=== PATIENT | female | born 1955 | race Caucasian/White ===

== ENCOUNTER 2018-07-03 20:31 | Inpatient (IN) ==
--- NOTE | 2018-07-03 23:08 | Internal Med History&Physical ---
Date of Encounter: 07/03/18 Time of Encounter: 23:08 Internal Medicine - H&P: HPI Chief complaint: difficulty breathing Admitted From: Home Plans for Post Hospital Care: Home History of present illness: Quiana Gutierrez is a 63-year-old morbidly obese woman who is an active smoker with a history of hypertension, diabetes, obstructive sleep apnea, COPD and heart failure who is brought here on transfer from [place] where she went to with complaints of increasing shortness of breath. She states that over the past 2-3 week she has had cough that is productive of discolored sputum as well as a sensation of chest congestion, sore throat, rhinorrhea and shortness of breath. She has had no fever but does report having chills sometimes. She states that her respiratory symptoms have been progressively worsened and decided to seek medical attention today because this morning after waking up she fell out of bed and hit her head. She did not pass out. She also complains of increasing leg swelling. ER she was given aerosol treatments and a dose of diuretic, started on levofloxacin and subsequently transferred here for further care. On my assessment she is in notable discomfort and ill-appearing. Lab work revealed a WBC of 12, elevated serum bicarbonate and a troponin of 0.12. EKG reviewed by me showed sinus rhythm with nonspecific T-wave abnormalities. Past Med Surg Social Fam HX - Past Medical History Medical history: diabetes, fibromyalgia, GERD, hyperlipidemia, hypertension, other Additional medical history: Deteriorated discs Psychiatric history: depression - Past Surgical History Surgical History: no surgical history - Social History Smoking Status: Current every day smoker Smokeless Tobacco Status: No Alcohol use: none Drug use: none Internal Medicine - H&P: Meds metFORMIN [Glucophage] 1,000 mg PO BIDWM 09/23/15 [History] Esomeprazole Magnesium [Nexium] 40 mg PO BID 01/30/17 [History] HydrOXYzine Pamoate [Vistaril] 25 mg PO QID PRN 01/30/17 [History] Losartan [Cozaar] 100 mg PO DAILY 01/30/17 [History] Naproxen [EC-Naprosyn] 500 mg PO TID 01/30/17 [History] Tramadol HCl [Ultram] 50 mg PO Q4H PRN 01/30/17 [History] Albuterol Sulfate [Albuterol Inhaler] 0 puff IH Q4HR 07/03/18 [History] Cyclobenzaprine HCl [Amrix] 15 mg PO DAILY 07/03/18 [History] DiphenhydraMINE [Benadryl] 25 mg PO Q4HR 07/03/18 [History] Furosemide [Lasix] 40 mg PO DAILY 07/03/18 [History] Gabapentin [Neurontin] 800 mg PO TID 07/03/18 [History] Allergy/AdvReac Type Severity Reaction Status Date / Time Methadone Allergy See Verified 07/03/18 17:01 Comments metoprolol Allergy Itching Verified 07/03/18 17:01 All Systems PM: A 10-system review of systems was performed and is negative for pertinent findings except as documented above in the HPI. Family history reviewed and found noncontributory. - Constitutional Vitals: Temp Pulse Resp BP Pulse Ox 98.1 F 89 16 186/99 88 07/03/18 22:37 07/03/18 22:37 07/03/18 22:37 07/03/18 22:37 07/03/18 22:37 Exam: Vitals: Reviewed General: Morbidly obese woman sitting up in bed and unable to tolerate supine decubitus. Skin: Warm, dry. HEENT: Dry mucous membranes. No conjunctivae pallor. Neck: Short and thick.. Chest: Diminished thoracic expansion. Reduced breath sounds with bibasilar rales. Heart: Normal S1 & S2; rhythmic. No rubs or murmurs. Abdomen: Soft and nontender. Extremities: 1+ lower extremity edema with trophic skin changes of venous stasis. Neurological: Awake, alert and oriented to person, place and time. No focal deficits. Psych: Affect appropriate. - Assessment and plan (1) Acute respiratory failure with hypoxia and hypercapnia Current Visit: Yes Status: Acute Assessment and plan: Likely multifactorial in etiology secondary to COPD exacerbation, pneumonia and acute congestive heart failure. She remains an ongoing 2 pack a day smoker even though she is on supplemental oxygen. She reports upper respiratory symptoms that have progressed over 2 weeks and now has an infiltrate on xray; she also has increasing edema and rales likely from a decompensated heart failure. The minimal BNP elevation is likely due to her obese state. ABG done here shows hypoxia and hypercarbia. Will place her on Bipap overnight. She reports non- adherence to her CPAP for months. Will give a dose of 40mg IVP furosemide as well and place on standing nebulizer therapy. Close respiratory watch. Screen for influenza. Send sputum for culture and check urine for Legionella. Continue levofloxacin 500mg daily. Will order Limon for I/O given her poor mobility while on diuretic therapy. Will like to get a chest CT however she is unable to lay supine at this time to tolerate it. Smoking cessation advised. Ensure patient has received pneumonia vaccines prior to discharge. (2) Elevated troponin Current Visit: Yes Status: Acute Assessment and plan: Suspect secondary to myocardial strain and demand rather than ACS. Will continue to trend levels and monitor patient on telemetry. (3) DM type 2 (diabetes mellitus, type 2) Current Visit: Yes Status: Chronic Assessment and plan: Will place on insulin sliding scale and check A1C to assess state of control. 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 With start antihypertensive agents tonight. Qualifiers: Hypertension type: essential hypertension Qualified Code(s): I10 - Essential (primary) hypertension (5) Fall Current Visit: Yes Status: Acute Assessment and plan: She reports a fall from bed this morning and hitting behind her ear. No traumatic injuries noted. No LOC. No focal deficits or signs of TBI. The patient states she cannot lay supine to tolerate a head CT. Will monitor closely. Fall precautions ordered. Qualifiers: Encounter type: initial encounter Qualified Code(s): W19.XXXA - Unspecified fall, initial encounter (6) DVT prophylaxis Current Visit: Yes Status: Acute Assessment and plan: SubQ heparin ordered. - Time Spent With Patient Total time spent is greater than 50% in coordination of care (as documented) at patient's floor/unit and/or counseling patient: Greater than 35 minutes
[2018-07-03] MEDS ORDERED: Furosemide 40 MG/4 ML VIAL IVP ONE (23:14)
[2018-07-03 23:32] LABS: ABG Base Excess 12 mEq/L (-2 to 3); ABG HCO3 42 mEq/L (21-27); ABG Oxygen Saturation 89 % (95-98); ABG PCO2 79 mmHg (35-45); ABG PH 7.34 pH Units (7.32-7.45); ABG PO2 65 mmHg (85-104); ABG TCO2 45 mEq/L (20-26)
[2018-07-03] MEDS: Ipratropium/Albuterol Neb 3 ML IH SCH (23:35)
[2018-07-03] MEDS ORDERED: Dextrose Gel 15 GM/37.5 ML TUBE PO PRN ×2 (23:40)
[2018-07-03] MEDS ORDERED: amLODIPine 5 MG TABLET PO ONE (23:41)
[2018-07-04] MEDS ORDERED: *HR* Heparin 5,000 UNIT/ML VIAL SQ SCH
[2018-07-04] MEDS: Insulin LISPRO 300 UNITS/3 ML VIAL SQ SCH ×5 (01:13→20:22)
[2018-07-04] MEDS: GuaiFENesin Liq 200 MG/10 ML UDC PO SCH ×4 (01:15→18:32)
[2018-07-04] MEDS: Clotrimazole 1% CRM 15 GM TUBE TP SCH ×3 (01:16→20:22)
[2018-07-04] MEDS ORDERED: ALPRAZolam 0.5 MG TABLET PO ONE (02:00)
[2018-07-04] MEDS ORDERED: *HR* Labetalol 20 MG/4 ML SYRINGE IVP ONE (02:00)
--- NOTE | 2018-07-04 02:56 | Event Note ---
Date of Encounter: 07/04/18 Time of Encounter: 02:55 The patient is continually refusing to be placed on Bipap and is now reporting a plethora of allergies to different antihypertensives now that her BP is significantly elevated. Home medication 100mg losartan ordered. Remains on respiratory watch.
[2018-07-04] MEDS: Ipratropium/Albuterol Neb 3 ML IH SCH ×6 (03:58→23:24)
[2018-07-04] MEDS: traMADol 50 MG TABLET PO PRN ×2 (05:52→20:32)
[2018-07-04] MEDS ORDERED: cloNIDine HCl 0.1 MG TABLET PO ONE (06:12)
[2018-07-04 07:57] LABS: Basophils # 0.1 K/mcL (0.0-0.2); Basophils % 0.5 %; Hematocrit 44.9 % (35.3-44.9); Hemoglobin 13.7 g/dL (11.5-15.4); Immature Granulocytes % 1.1 % (0-4); Lymphocytes # 0.7 K/mcL (0.6-4.6); Lymphocytes % 6.7 %; Mean Corpuscular HGB Conc 30.5 g/dL (31.6-35.5); Mean Corpuscular Volume 88.4 fL (83.0-100.0); Mean Platelet Volume 9.9 fL (9.4-12.4); Monocytes # 0.3 K/mcL (0.0-1.3); Monocytes % 2.9 %; Neutrophils # 9.4 K/mcL (1.6-8.9); Nucleated Red Blood Cells 0.4 /100 WBC (0); Platelet Count 196 K/mcL (140-400); Red Blood Count 5.08 M/mcL (3.82-4.97); Red Cell Distribution Width 14.6 % (11.5-14.5); Segmented Neutrophils % 88.8 %
[2018-07-04] MEDS ORDERED: *HR* Heparin 5,000 UNIT/ML VIAL IVP PRN ×2 (07:59)
[2018-07-04] MEDS ORDERED: *HR* Heparin 5,000 UNIT/ML VIAL IVP ONE (07:59)
[2018-07-04] MEDS ORDERED: Furosemide 20 MG/2 ML VIAL IVP SCH (08:00)
[2018-07-04] MEDS ORDERED: Heparin 25,000 UNIT/500 ML D5W 25,000 UNIT/500 ML BAG IVC SCH (08:00)
[2018-07-04 08:17] LABS: BUN/Creatinine Ratio 13 (6-26); Blood Urea Nitrogen 13 mg/dL (8-23); Calcium 9.2 mg/dL (8.6-10.3); Chloride 91 mEq/L (98-107); Chol/HDL Ratio 5.2 (0-4.9); Cholesterol 157 mg/dL (< 200); Glucose 159 mg/dL (70-105); HDL Cholesterol 30 mg/dL (40-59); LDL Cholesterol,Calculated 108 mg/dL (0-99); Osmolality,Calculated 289 (280-300); Sodium 138 mEq/L (136-145); Triglycerides 96 mg/dL (< 150); Troponin I 0.13 ng/mL (< 0.04); eGFR For Non-African Americans 57 (> 60)
[2018-07-04 08:20] LABS: Carbon Dioxide 42 mEq/L (23-29)
[2018-07-04] MEDS ORDERED: Losartan/HCTZ 50-12.5 TABLET PO SCH (09:00)
[2018-07-04 09:15] LABS: Hematocrit 45.7 % (35.3-44.9); Hemoglobin 13.7 g/dL (11.5-15.4); Mean Corpuscular Hemoglobin 26.9 pg (28.0-33.3); Mean Corpuscular Volume 89.6 fL (83.0-100.0); Mean Platelet Volume 10.2 fL (9.4-12.4); Platelet Count 208 K/mcL (140-400); Red Cell Distribution Width 14.5 % (11.5-14.5)
[2018-07-04 09:25] LABS: INR 1.3; Prothrombin Time 14.3 Seconds (9.4-12.1)
[2018-07-04 10:44] LABS: Estimated Average Glucose 128 mg/dl; Hemoglobin A1C 6.1 %
[2018-07-04] MEDS ORDERED: Perflutren Lipid Microsphere 1.3 ML in 0.9 % Sodium Chloride 8.7 ML IVP ONE (12:03)
[2018-07-04] MEDS: acetaZOLAMIDE 250 MG TABLET PO SCH (12:05)
--- NOTE | 2018-07-04 13:16 | Internal Med Progress Note ---
Hospitalist Progress Note - Encounter Date of Encounter: 07/04/18 Time of Encounter: 08:12 - Subjective Interval History: Patient was seen and examined at bedside. Reports minimal improvement in her shortness of breath since admission. Refusing to wear BiPAP, I discussed the risks and benefits and the low threshold for intubation and she understands she will try to wear the BiPAP again. She denies chest pain, shortness of breath. Reports that she has had minimal physical activity for the past few weeks secondary to shortness of breath. She reports that she smokes cigarettes almost every day. She does report cough with minimal sputum production. Currently denies fever, chills, nausea, vomiting, diarrhea, chest pain. i discussed with the patietn that she is requiring heparin drip for elevated troponin and she requires CTPA to rule out PE she understands nad is willing to try to lay flat later today. she also reports that she only hit her head mildly s/p fall 07/03- she denies vision changes, head ache, loss of function to her extremities, numbness or weakness. she understands the risks and benefits of anticoagulation and she agrees to continue - Exam Vitals: Temp Pulse Resp BP Pulse Ox 97.9 F 79 18 165/73 89 07/04/18 11:25 07/04/18 11:25 07/04/18 11:25 07/04/18 11:25 07/04/18 11:25 Exam: Vitals: Reviewed General: Morbidly obese woman sitting up in bed, speaks in full sentences, nasal cannula Skin: Warm, dry. Chronic skin changes in the bilateral lower extremities secondary to venous stasis HEENT: Dry mucous membranes. No conjunctivae pallor. Neck: Short and thick. Chest: Diminished thoracic expansion. Reduced breath sounds secondary to body habitus with bibasilar rales. Heart: Distant heart sounds secondary to body habitus, Normal S1 & S2; rhythmic. No rubs or murmurs. Abdomen: Soft and nontender. Obese. Extremities: 1+ lower extremity edema with trophic skin changes of venous stasis. Neurological: Awake, alert and oriented to person, place and time. No focal deficits. Psych: Affect appropriate. - Assessment and Plan (1) Acute chronic obstructive pulmonary disease with respiratory failure Current Visit: Yes Status: Acute Assessment and Plan: We will start her on burst of steroids prednisone 40 mg for 5 days Started on Levaquin emergency department will continue Urine antigens negative Influenza negative Oxygen via nasal cannula to keep saturations above 90% BiPAP when necessary for respiratory distress Duo nebs every 4 hours (2) Congestive heart failure Current Visit: No Status: Acute Assessment and Plan: Acute CHF Will get echo Started on Lasix 40 mg IV twice a day Fluid restriction Daily weights (3) Acute respiratory failure with hypoxia and hypercapnia Current Visit: Yes Status: Acute Assessment and Plan: Likely multifactorial in etiology secondary to COPD exacerbation, pneumonia and acute congestive heart failure. And non-adherence to medical therapy. She remains an ongoing 2 pack a day smoker even though she is on supplemental oxygen. For subcutaneous management as above. (4) Elevated troponin Current Visit: Yes Status: Acute Assessment and Plan: Most likely secondary to supply versus demand mismatch cannot rule out underlying CAD rule out PE (well criteria 7.5)n Troponin 0.12 trended 2.13 Started on aspirin 81 mg lipitor 40 mg QHS unable to start BB as she is allergic On heparin drip Unable to lay flat to have CT angiogram of the chest performed Echocardiogram pending (5) Hypertension Current Visit: Yes Status: Chronic Assessment and Plan: Poorly controlled and could exacerbate her cardiac condition. Started on Lasix IV twice a day Losartan 100 mg daily ImDUR 30 mg daily acetazolamide 125 mg daily (6) DM type 2 (diabetes mellitus, type 2) Current Visit: Yes Status: Chronic Assessment and Plan: Will place on insulin sliding scale A1c of 6.1 She was counseled on diet and exercise (7) Fall Current Visit: Yes Status: Acute Assessment and Plan: She reports a fall from bed this morning and hitting behind her ear. No traumatic injuries noted. No LOC. No focal deficits or signs of TBI. The patient states she cannot lay supine to tolerate a head CT. neuro checks Q4h Fall precautions ordered. PT/OT CM SW (8) DVT prophylaxis Current Visit: Yes Status: Acute Assessment and Plan: On heparin drip - Time Spent with Patient Total time spent is greater than 50% in coordination of care (as documented) at patient's floor/unit and/or counseling patient: Internal Medicine: Result - Labs CBC & Chem 7: 07/04/18 08:27 07/04/18 07:13 Labs: Short CBC 07/04/18 07/04/18 Range/Units 07:13 08:27 WBC 10.6 10.7 (4.3-11.1) K/mcL Hgb 13.7 13.7 (11.5-15.4) g/dL Hct 44.9 45.7 H (35.3-44.9) % Plt Count 196 208 (140-400) K/mcL Neutrophils # 9.4 H (1.6-8.9) K/mcL BMP 07/04/18 07:13 Sodium 138 Potassium 4.0 Chloride 91 L Carbon Dioxide 42 H* BUN 13 Creatinine 0.98 Glucose 159 H Calcium 9.2 Cardiac Enzymes 07/04/18 07/04/18 Range/Units 00:30 07:13 Troponin I 0.12 H* 0.13 H* (< 0.04) ng/mL - ABG Interpretation ABG results: ABG ABG pH 7.34 pH Units (7.32-7.45) 07/03/18 23:29 ABG pCO2 79 mmHg (35-45) H* 07/03/18 23:29 ABG pO2 65 mmHg (85-104) L 07/03/18 23:29 ABG O2 Saturation 89 % (95-98) L 07/03/18 23:29 PT/INR, D-dimer PT 14.3 Seconds (9.4-12.1) H 07/04/18 08:27 Consult Discharge Plan - Plan Referrals: NONE,PCP [Primary Care Provider] - _ (2) Congestive heart failure Qualifiers: Heart failure type: unspecified Heart failure chronicity: acute Qualified Code(s): I50.9 - Heart failure, unspecified (5) Hypertension Qualifiers: Hypertension type: essential hypertension Qualified Code(s): I10 - Essential (primary) hypertension (6) DM type 2 (diabetes mellitus, type 2) Qualifiers: 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
[2018-07-04] MEDS ORDERED: Isovue-370 500 ML INFUS..BTL IV ONE (13:55)
[2018-07-04] MEDS: predniSONE 20 MG TABLET PO SCH (16:51)
[2018-07-04] MEDS: Furosemide 40 MG/4 ML VIAL IVP SCH (16:51)
[2018-07-04] MEDS: Aspirin 81 MG TAB.CHEW PO SCH (16:51)
[2018-07-04 20:46] LABS: ABG Base Excess 17 mEq/L (-2 to 3); ABG HCO3 47 mEq/L (21-27); ABG Oxygen Saturation 88 % (95-98); ABG PCO2 76 mmHg (35-45); ABG PO2 58 mmHg (85-104); ABG TCO2 49 mEq/L (20-26)
[2018-07-04] MEDS: Levofloxacin 500 MG/100 ML 500 MG/100 ML BAG IVPB SCH (21:52)
[2018-07-04] MEDS: *HR* Heparin 5,000 UNIT/ML VIAL SQ SCH (21:53)
[2018-07-04] MEDS ORDERED: diazePAM 10 MG/2 ML SYRINGE IVP ONE (23:23)
[2018-07-05] MEDS: GuaiFENesin Liq 200 MG/10 ML UDC PO SCH ×4 (00:28→16:52)
[2018-07-05] MEDS: Ipratropium/Albuterol Neb 3 ML IH SCH ×6 (03:32→23:49)
[2018-07-05 03:52] LABS: Basophils # 0.1 K/mcL (0.0-0.2); Basophils % 0.4 %; Eosinophils % 0.1 %; Hematocrit 44.5 % (35.3-44.9); Hemoglobin 13.6 g/dL (11.5-15.4); Immature Granulocytes % 1.6 % (0-4); Lymphocytes # 1.2 K/mcL (0.6-4.6); Lymphocytes % 8.9 %; Mean Corpuscular HGB Conc 30.6 g/dL (31.6-35.5); Mean Corpuscular Hemoglobin 26.9 pg (28.0-33.3); Mean Corpuscular Volume 88.1 fL (83.0-100.0); Mean Platelet Volume 9.6 fL (9.4-12.4); Monocytes # 0.8 K/mcL (0.0-1.3); Monocytes % 6.1 %; Neutrophils # 10.7 K/mcL (1.6-8.9); Platelet Count 231 K/mcL (140-400); Red Blood Count 5.05 M/mcL (3.82-4.97); Red Cell Distribution Width 14.6 % (11.5-14.5); Segmented Neutrophils % 82.9 %
[2018-07-05 04:44] LABS: Blood Urea Nitrogen 20 mg/dL (8-23); Calcium 9.5 mg/dL (8.6-10.3); Carbon Dioxide 42 mEq/L (23-29); Chloride 89 mEq/L (98-107); Glucose 124 mg/dL (70-105); Osmolality,Calculated 288 (280-300); Potassium 3.9 mEq/L (3.5-5.1); Sodium 137 mEq/L (136-145)
[2018-07-05 05:05] LABS: BUN/Creatinine Ratio 18 (6-26); eGFR For Non-African Americans 50 (> 60)
[2018-07-05] MEDS: *HR* Heparin 5,000 UNIT/ML VIAL SQ SCH ×3 (06:11→23:31)
[2018-07-05] MEDS: Aspirin 81 MG TAB.CHEW PO SCH (07:49)
[2018-07-05] MEDS: predniSONE 20 MG TABLET PO SCH (07:51)
[2018-07-05] MEDS: acetaZOLAMIDE 250 MG TABLET PO SCH (07:51)
[2018-07-05] MEDS: Isosorbide MONOnitrate (24 HR) 60 MG TAB.ER.24H PO SCH (07:51)
[2018-07-05] MEDS: Furosemide 40 MG/4 ML VIAL IVP SCH (07:52)
[2018-07-05] MEDS: Insulin LISPRO 300 UNITS/3 ML VIAL SQ SCH ×4 (07:52→23:29)
[2018-07-05] MEDS: Clotrimazole 1% CRM 15 GM TUBE TP SCH ×2 (07:55→23:31)
[2018-07-05] MEDS: traMADol 50 MG TABLET PO PRN (09:29)
[2018-07-05 10:00] LABS: Adenovirus Not Detected (Not Detect); Bordetella Pertussis Not Detected (Not Detect); Chlamydophila pneumoniae Not Detected (Not Detect); Coronavirus 229E Not Detected (Not Detect); Coronavirus HKU1 Not Detected (Not Detect); Coronavirus NL63 Not Detected (Not Detect); Coronavirus OC43 Not Detected (Not Detect); Human Metapneumovirus Not Detected (Not Detect); Human Rhinovirus/Enterovirus Not Detected (Not Detect); Influenza A Subtype 2009 H1 Not Detected (Not Detect); Influenza A Untypeable Not Detected (Not Detect); Influenza B Not Detected (Not Detect); Mycoplasma pneumoniae Not Detected (Not Detect); Parainfluenza Virus 1 Not Detected (Not Detect); Parainfluenza Virus 2 Not Detected (Not Detect); Parainfluenza Virus 3 Not Detected (Not Detect); Parainfluenza Virus 4 Not Detected (Not Detect); Respiratory Syncytial Virus Not Detected (Not Detect)
--- NOTE | 2018-07-05 10:25 | Cardiology Consult Note ---
<Rosalina Benito - Last Filed: 07/05/18 11:06> Date of Encounter: 07/05/18 Time of Encounter: 09:00 Assessment and Plan (1) Multifocal pneumonia Current Visit: Yes Status: Acute Per cardiology: -Chest CTA with multifocal pneumonia noted. -WBC elevated. -Presented for worsening shortness of breath. -Management per primary service. (2) Congestive heart failure Current Visit: No Status: Chronic Per cardiology: -Reports history of CHF. -TTE with LVEF preserved. -Per reports, was volume overloaded on exam, however euvolemic on exam today. -On IV lasix 40mg BID, negative 5400ml. -CHF education reviewed with patient. -Will switch lasix to oral. Qualifiers: Heart failure type: diastolic Heart failure chronicity: acute on chronic Qualified Code(s): I50.33 - Acute on chronic diastolic (congestive) heart failure (3) Elevated troponin Current Visit: Yes Status: Acute Per cardiology: -Mild flat,adynamic troponins in the setting of multifocal pnuemonia, HTN, CHF. -Denies chest pain. -ECG with no acute ischemic changes. Non-specific T wave abnormalities similar to ECG 2016. -TTE with LVEF 75%, hyperdynamic wall motion. -ON asa, statin. Not on BB due to allergy. -Demand ischemia. No cardiac rehab consult warranted. -Anticipate cardiology sign off once seen and evaluated by . Will arr jesus outpatient follow up. Discussion w patient/family: The assessment and plan as outlined above was discussed with the patient who expressed understanding and agreement. All questions were answered. Thank you for involving us in the care of your patient. Please call with any questions. Discussed and reviewed with . History of Present Illness Consult date: 07/04/18 Requesting physician: Sindhu Lynn Consult reason: elevated troponin Chief complaint: shortness of breath History of present illness: Ms. Gutierrez is a 63 year old female with a relevant past medical history of diastolic CHF, HTN, DM, obesity, tobacco abuse who presented to [facility] with complaints of worsening shortness of breath and increased peripheral edema. Patient denies chest pain. Reports shortness of breath is improving. Patient states edema has resolved. Past Med Surg Social Fam HX - Past Medical History Attestation: Yes The following information was validated with the patient. Source: patient, old records reviewed Medical history: CHF, diabetes, fibromyalgia, GERD, hyperlipidemia, hypertension, other Additional medical history: Deteriorated discs Psychiatric history: depression - Past Surgical History Surgical History: no surgical history - Social History Smoking Status: Current every day smoker Packs per day: 2 Smokeless Tobacco Status: No Alcohol use: none Drug use: none - Family History Father Name: Grey Hernandez Living Status: Age at : 38 Cause of : Murdered Mother Name: Lashonda Anthony Living Status: Cause of : Cancer Hx Family Cardiac Disorders: Yes (CHF) Hx Family Respiratory Disorders: Yes (COPD) Hx Family Cancer: Yes (Lung, brain) Hx Family GI Disorders: No Hx Family Genitourinary Disorders: No Hx Family Endocrine Disorder: No Hx Family Musculoskeletal Disorders: No Hx Family Neuromuscular Disorders: No Hx Family Neurologic Disorders: No Hx Family HEENT Disorders: No Hx Family Autoimmune Disorders: No Hx Family Reproductive Disorders: No Hx Family Psychosocial Disorders: No Hx Family Medical Disorders: No Medications and Allergies metFORMIN [Glucophage] 1,000 mg PO BIDWM 09/23/15 [History] Esomeprazole Magnesium [Nexium] 40 mg PO BID 01/30/17 [History] HydrOXYzine Pamoate [Vistaril] 25 mg PO QID 01/30/17 [History] Losartan [Cozaar] 100 mg PO DAILY 01/30/17 [History] Naproxen [EC-Naprosyn] 500 mg PO BID 01/30/17 [History] Tramadol HCl [Ultram] 100 mg PO TID PRN 01/30/17 [History] Albuterol Sulfate [Albuterol Inhaler] 1 - 2 puff IH Q6HR PRN 07/03/18 [History] Cyclobenzaprine HCl [Amrix] 15 mg PO BID 07/03/18 [History] DiphenhydraMINE [Benadryl] 25 mg PO Q4HR 07/03/18 [History] Furosemide [Lasix] 40 mg PO DAILY 07/03/18 [History] Sherwood-3 Acid Ethyl Esters [Lovaza] 4 gm PO DAILY 07/05/18 [History] Allergy/AdvReac Type Severity Reaction Status Date / Time amlodipine [From [facility]] Allergy Palpitation Verified 07/04/18 02:07 s Methadone Allergy See Verified 07/03/18 17:01 Comments metoprolol Allergy Itching Verified 07/03/18 17:01 All Systems Review: The remainder of the systems were reviewed and are negative - Cardiovascular Cardiovascular: as per HPI, dyspnea at rest, dyspnea on exertion, leg edema Physical Examination Vital Signs, Last 4 Hours Temp Pulse Resp BP Pulse Ox 07/05/18 07:24 18 90 07/05/18 06:50 98.1 F 94 16 155/87 91 General: Conversant, No Apparent Distress HEENT: Atraumatic, Normocephaly, Mucus Membranes Moist Neck: No JVD, Normal carotid pulses Cardiac: Reg Rate and Rhythm, Normal S1 and S2, No Murmur Lungs: Other (Lung sounds diminished throughout. ) Neuro: Alert and responsive, No focal deficits noted Abdomen: Soft, Non-Tender Skin: No rashes noted on visualized skin Musculoskeletal: No Chest Wall Tenderness Extremities: No Clubbing, No Cyanosis, No Edema, Normal Pulses Results 07/05/18 03:26 07/05/18 03:26 Lab Results Impressions Echocardiogram 07/04/18 11:00 Impressions: LVEF 75%, hyperdynamic LV. Normal LV chamber size, wall thickness and function. Normal right ventricular structure and function. No significant valvular dysfunction. No evidence of pulmonary hypertension. Low RA pressure. Left Ventricular Wall Motion: Rest Echo Findings The apex, apical inferior, mid inferior, basal inferior, apical anterior, mid anterior, basal anterior, apical septal, mid inferior septal, basal inferior septal, apical lateral, mid anterior lateral, basal anterior lateral, mid anterior septal, mid inferior lateral, basal anterior septal and basal inferior lateral beyer were hyperkinetic. Findings: Study Quality * Technically adequate exam. ECG Findings * Normal sinus rhythm. Left Ventricle * LVEF 75%, hyperdynamic LV. * Normal LV chamber size, wall thickness and function. * Normal left ventricular diastolic function. Right Ventricle * Normal right ventricular structure and function. Left Atrium * Normal left atrial size. Right Atrium * Normal right atrial size. Interatrial Septum * Interatrial septum not well evaluated. * No evidence of PFO by color Doppler. Aortic Valve * Aortic valve not well visualized. * No aortic stenosis. Elevated LVOT gradient likely due to hyperdynamic LV. * No aortic regurgitation. Mitral Valve * Normal mitral valve structure and function. * No mitral stenosis. * No mitral regurgitation. Tricuspid Valve * Normal tricuspid valve structure and function. * No tricuspid stenosis. * No tricuspid regurgitation. * Unable to estimate RVSP due to lack of TR jet. * No evidence of pulmonary hypertension. * Estimated RA pressure is 3 mmHg. Pulmonic Valve * Pulmonic valve is not well visualized. * No pulmonic stenosis. * Trace pulmonic regurgitation. Aorta * Normally sized aortic root. Pericardium * The pericardium appears normal. IVC * Normal IVC dimensions and inspiratory collapse. Chest CTA 07/04/18 13:55 IMPRESSION: 1. No evidence of pulmonary embolic disease. 2. Enlarged main pulmonary artery consistent with pulmonary hypertension. 3. Patchy multifocal infiltrate, most confluent in the upper lobes. The distribution does not suggest areas of contusion but more likely represents a multifocal pneumonia. D/ / 07/04/2018 16:55:01 Grey Coates MD / juan antonio Interpreting Provider: Grey Coates MD Head CT 07/04/18 13:55 IMPRESSION: No acute intracranial abnormality. D/ / Yaakov Chavez / Yaakov Chavez Interpreting Provider: Yaakov Chavez Active Medications Acetazolamide (Diamox) 125 mg PO DAILY [facility]; Protocol Stop: 01/03/19 11:16 Last Admin: 07/05/18 07:51 Dose: 125 mg Albuterol/Ipratropium (Duoneb) 3 ml IH [id number] [facility] Stop: 01/03/19 00:01 Last Admin: 07/05/18 07:22 Dose: 3 ml Aspirin (Aspirin) 81 mg PO DAILY [facility] EU[facility] Stop: 01/03/19 13:31 Last Admin: 07/05/18 07:49 Dose: 81 mg Atorvastatin Calcium (Lipitor) 40 mg PO HS [facility] EUGENIA Stop: 01/03/19 21:01 Last Admin: 07/04/18 20:22 Dose: 40 mg Clotrimazole (Lotrimin 1%) 1 appl TP BID [facility]; Protocol Stop: 01/03/19 00:16 Last Admin: 07/05/18 07:55 Dose: 1 appl Furosemide (Lasix) 40 mg IVP BIDDIURETIC [facility] EUGENIA Stop: 01/03/19 17:01 Last Admin: 07/05/18 07:52 Dose: 40 mg Glucose (Gluctose) 15 gm PO ONCE PRN PRN Reason: Hypoglycemia Stop: 01/02/19 23:41 Glucose (Gluctose) 30 gm PO ONCE PRN PRN Reason: Hypoglycemia Stop: 01/02/19 23:41 Guaifenesin (Robitussin Liq) 200 mg PO Q6HR [facility] EUGENIA Stop: 01/03/19 00:01 Last Admin: 07/05/18 06:11 Dose: 200 mg Heparin Sodium (Porcine) (Heparin) 5,000 unit SQ Q8HCO [facility] Stop: 01/03/19 22:01 Last Admin: 07/05/18 06:11 Dose: 5,000 unit Hydralazine HCl (Hydralazine) 10 mg IVP Q6HR PRN PRN Reason: Hypertension Stop: 01/03/19 20:54 Last Admin: 07/04/18 21:53 Dose: 10 mg Levofloxacin/Dextrose (Levaquin Premix 500mg/100ml) 500 mg in 100 mls @ 100 mls/hr IVPB Q24H [facility]; Protocol Stop: 07/05/18 23:59 Last Admin: 07/04/18 21:52 Dose: 100 mls/hr Insulin Human Lispro (Humalog) 0 units SQ TIDAC [facility]; Protocol Stop: 01/03/19 07:31 Last Admin: 07/05/18 07:52 Dose: Not Given Insulin Human Lispro (Humalog) 0 units SQ HS [facility]; Protocol Stop: 01/02/19 23:46 Last Admin: 07/04/18 20:22 Dose: 3 units Isosorbide Mononitrate (Imdur) 60 mg PO DAILY [facility] Stop: 01/04/19 09:01 Last Admin: 07/05/18 07:51 Dose: 60 mg Levofloxacin (Levaquin) 500 mg PO Q24H [facility] Stop: 01/05/19 18:01 Losartan Potassium (Cozaar) 100 mg PO DAILY [facility]; Protocol Stop: 01/04/19 09:01 Last Admin: 07/05/18 07:50 Dose: 100 mg Omeprazole (Prilosec) 40 mg PO BIDAC [facility]; Protocol Stop: 01/03/19 07:31 Last Admin: 07/05/18 07:50 Dose: 40 mg Prednisone (Prednisone) 40 mg PO DAILY [facility] Stop: 07/08/18 13:31 Last Admin: 07/05/18 07:51 Dose: 40 mg Tramadol HCl (Ultram) 100 mg PO TID PRN PRN Reason: Pain Stop: 01/03/19 03:38 Last Admin: 07/05/18 09:29 Dose: 100 mg Laboratory Tests 07/04/18 07/04/18 07/05/18 00:30 07:13 03:26 WBC 12.9 H Hgb 13.6 Creatinine Troponin I 0.12 H* 0.13 H* 07/05/18 03:26 WBC Hgb Creatinine 1.10 Troponin I - Imaging and Cardiology Chest Xray: report reviewed Echo: report reviewed - EKG Interpretation EKG results cardiology: personally reviewed (ECG with SR, HR 91. Non-specific T wave abnormalities noted.), other (Telemetry reviewed with average HR previous 12 hours noted to be 87, SR. PVCs, PACs noted. Short run of atrial tachycardia noted.) Consult Discharge Plan - Plan Referrals: NONE,PCP [Primary Care Provider] - <Velasquez Dorado - Last Filed: 07/05/18 15:41> Date of Encounter: 07/05/18 - Attending Attestation I have personally performed a face to face evaluation on this patient. I have reviewed and agree with the care plan. History and Exam by me shows: 63 YOF with hx of CHF with preserved EF here for SOB found to have multifocal pneumonia adynamic trops. ECHO with preserved EF to be strated on Abx. Patient may follow up as an OP with cardiology as she may benefit from a non invasive ischemic cardiac work up. Assessment and Plan Discussion w patient/family: The assessment and plan as outlined above was discussed with the patient and/or family members who expressed understanding and agreement. All questions were answered. Thank you for involving us in the care of your patient. Please call with any questions. History of Present Illness History of present illness: Ms. Gutierrez is a 63 year old female All Systems Review: The remainder of the systems were reviewed and are negative Results 07/05/18 03:26 07/05/18 03:26 Lab Results 07/05/18 07/05/18 03:26 03:26 WBC 12.9 H Hgb 13.6 Hct 44.5 Plt Count 231 Sodium 137 Potassium 3.9 Chloride 89 L Carbon Dioxide 42 H* BUN 20 Creatinine 1.10 Glucose 124 H Calcium 9.5
--- NOTE | 2018-07-05 10:44 | Pulmonology Consult Note ---
<Dominick Nathan W - Last Filed: 07/05/18 16:35> Date of Encounter: 07/05/18 Medications and Allergies metFORMIN [Glucophage] 1,000 mg PO BIDWM 09/23/15 [History] Esomeprazole Magnesium [Nexium] 40 mg PO BID 01/30/17 [History] HydrOXYzine Pamoate [Vistaril] 25 mg PO QID 01/30/17 [History] Losartan [Cozaar] 100 mg PO DAILY 01/30/17 [History] Naproxen [EC-Naprosyn] 500 mg PO BID 01/30/17 [History] Tramadol HCl [Ultram] 100 mg PO TID PRN 01/30/17 [History] Albuterol Sulfate [Albuterol Inhaler] 1 - 2 puff IH Q6HR PRN 07/03/18 [History] Cyclobenzaprine HCl [Amrix] 15 mg PO BID 07/03/18 [History] DiphenhydraMINE [Benadryl] 25 mg PO Q4HR 07/03/18 [History] Furosemide [Lasix] 40 mg PO DAILY 07/03/18 [History] [place]-3 Acid Ethyl Esters [Lovaza] 4 gm PO DAILY 07/05/18 [History] Allergy/AdvReac Type Severity Reaction Status Date / Time amlodipine [From [facility]] Allergy Palpitation Verified 07/04/18 02:07 s Methadone Allergy See Verified 07/03/18 17:01 Comments metoprolol Allergy Itching Verified 07/03/18 17:01 All Systems: The remainder of the systems were reviewed and are negative Physical Examination Vital Signs: Vital Signs, Last 4 Hours Resp Pulse Ox 07/05/18 15:57 18 93 Results - Laboratory Findings CBC and BMP: 07/05/18 03:26 07/05/18 03:26 ABG ABG pH 7.40 pH Units (7.32-7.45) 07/04/18 20:41 ABG pCO2 76 mmHg (35-45) H* 07/04/18 20:41 ABG pO2 58 mmHg (85-104) L 07/04/18 20:41 ABG O2 Saturation 88 % (95-98) L 07/04/18 20:41 PT/INR, D-dimer PT 14.3 Seconds (9.4-12.1) H 12/19/18 08:27 Abnormal lab findings: Abnormal lab results WBC 12.9 K/mcL (4.3-11.1) H 07/05/18 03:26 RBC 5.05 M/mcL (3.82-4.97) H 07/05/18 03:26 MCH 26.9 pg (28.0-33.3) L 07/05/18 03:26 MCHC 30.6 g/dL (31.6-35.5) L 07/05/18 03:26 RDW 14.6 % (11.5-14.5) H 07/05/18 03:26 Neutrophils # 10.7 K/mcL (1.6-8.9) H 07/05/18 03:26 Nucleated RBCs/100 WBC 0.4 /100 WBC (0) H 07/04/18 07:13 PT 14.3 Seconds (9.4-12.1) H 07/04/18 08:27 ABG pCO2 76 mmHg (35-45) H* 07/04/18 20:41 ABG pO2 58 mmHg (85-104) L 07/04/18 20:41 ABG HCO3 47 mEq/L (21-27) H 07/04/18 20:41 ABG Total CO2 49 mEq/L (20-26) H 07/04/18 20:41 ABG O2 Saturation 88 % (95-98) L 07/04/18 20:41 ABG Base Excess 17 mEq/L (-2 to 3) H 07/04/18 20:41 Chloride 89 mEq/L (98-107) L 07/05/18 03:26 Carbon Dioxide 42 mEq/L (23-29) H* 07/05/18 03:26 Est GFR (Non-Af Amer) 50 (> 60) L 07/05/18 03:26 Glucose 124 mg/dL (70-105) H 07/05/18 03:26 POC Glucose 107 mg/dL (70-99) H 07/04/18 16:32 Hemoglobin A1c 6.1 % (-5.6) H 07/04/18 07:13 Troponin I 0.13 ng/mL (< 0.04) H* 07/04/18 07:13 LDL Cholesterol, Calc 108 mg/dL (0-99) H 07/04/18 07:13 HDL Cholesterol 30 mg/dL (40-59) L 07/04/18 07:13 Cholesterol/HDL Ratio 5.2 (0-4.9) H 07/04/18 07:13 Urine Blood Moderate (Negative) H 07/05/18 13:20 Urine Urobilinogen 2.0 mg/dL (Normal) H 07/05/18 13:20 Ur Leukocyte Esterase Trace (Negative) H 07/05/18 13:20 Urine Microscopic RBC 50-100 per hpf (0-3) H 07/05/18 13:20 Ur Squamous Epith Cells Many per lpf (None-Few) H 07/05/18 13:20 - Microbiology Findings Microbiology Findings: Microbiology, Last 48 Hours 07/04/18 01:50 Influenza Types A,B Antigen - Final Nasopharyngeal 07/04/18 00:20 Legionella Antigen - Final Urine,Clean Catch Streptococcus pneumoniae Antigen (M - Final - Clinical Findings Intake & Output: Intake & Output 07/05/18 07/05/18 07/05/18 07:59 15:59 23:59 Intake Total 100 / 100 240 / 240 Output Total 2200 / 2200 1125 / 1125 Balance -2100 / -2100 -885 / -885 Weight 115.2 kg Consult Discharge Plan - Plan Referrals: NONE,PCP [Primary Care Provider] - - Attending Attestation I examined this patient and my medical decision-making was reviewed with the Resident Physician. I agree with the documented findings, disposition and treatment plan as described except to the extent set forth below. We independ ently had [id number] contact with the patient Patient seen and examined at bedside Labs, radiology, chart personally reviewed. Impression: * Acute on chronic hypoxic hypercapnic respiratory failure * Community-acquired pneumonia * COPD with acute exacerbation * Sleep-disordered breathing * Morbid obesity * Tobacco abuse Recs: -Wean FiO2 to keep saturation greater than 89 to around 92%. Patient is not requiring BiPAP for acute respiratory failure at this time but she will need BIPAP Qualification while inpatient to go home with noninvasive ventilation. Encourage out of bed to chair and early ambulation while monitored and with PT OT as well as incentive spirometry -Agree with respiratory fluoroquinolone to complete 7-10 days of treatment based upon clinical response cultures thus far negative; repeat noncontrasted CT scan in 4-6 weeks at the time of discharge -Agree with oral glucocorticoids prednisone 40 mg to complete a two-week taper continue schedule duo nebs every 6 hours with every one to 2 hour albuterol as needed start Symbicort 160/4.52 puffs twice a day patient should be discharged with this along with a chamber spacer she will need outpatient follow-up in pulmonary clinic in 2-4 weeks to optimize COPD management follow-up pneumonia and PFTs etc. -Recommend continuation of positive airway pressure with and was sleep patient will need outpatient to repeat BiPAP titration -Weight loss encouraged -Tobacco cessation counseling given previous provide the patient with nicotine patch if requested Pulmonary will sign off we look forward to following with this patient in the outpatient setting in the next 2-4 weeks please call with any questions we appreciate the consultation <Olga Restrepo - Last Filed: 07/05/18 17:48> Date of Encounter: 07/05/18 Time of Encounter: 10:44 Assessment and Plan (1) Multifocal pneumonia Current Visit: Yes Status: Acute Chest CT demonstrated patchy multifocal infiltrate, most confluent in the upper lobes. Patient was started on antimicrobial therapy with levaquin by primary team. - Continue levaquin as initiated by primary team. Anticipate a total of 7-10 da ys of therapy depending on clinical improvement. - Sputum culture pending - Urine legionella antigen negative - Obtain blood cultures x 2 - Obtain Strep pneumoniae urine antigen and MRSA nasal swab - Repeat chest CT in 4-6 weeks and plan for outpatient followup in the pulmonology clinic 4-6 weeks after discharge to ensure resolution of pneumonia (2) COPD (chronic obstructive pulmonary disease) Current Visit: Yes Status: Acute Acute exacerbation likely secondary to acute multifocal pneumonia. Patient is not on a maintence regimen for control of respiratory symptoms and has not been seen by a patients transporter in the past. - Continue oral steroid therapy, with plan for a two-week taper - Recommend duonebs Q4H, with albuterol nebs Q1-2H PRN - Supplemental oxygen titrated to maintain oxygen saturation 88-92% - Plan for outpatient followup in the pulmonology clinic after hospital discharge for ongoing management Qualifiers: COPD type: COPD with acute exacerbation Qualified Code(s): J44.1 - Chronic obstructive pulmonary disease with (acute) exacerbation (3) Acute and chronic respiratory failure Current Visit: Yes Status: Acute Multifocal etiology, including acute pneumonia, COPD with exacerbation, obesity hypoventilation, and continued tobacco use. Management as above. Qualifiers: Respiratory failure complication: hypoxia and hypercapnia Qualified Code(s): J96.21 - Acute and chronic respiratory failure with hypoxia; J96.22 - Acute and chronic respiratory failure with hypercapnia (4) Sleep-disordered breathing Current Visit: Yes Status: Chronic Patient reports a history of SUNITA. She does not use CPAP or BiPAP at night, and states that she does not have a machine at home. - BiPAP therapy while sleeping at night and during naps - Patient should undergo BiPAP qualification study prior to discharge - Recommend walk test for supplemental oxygen qualification prior to discharge - Recommend polysomnography in the future, to be done on an outpatient basis (5) Obesity hypoventilation syndrome Current Visit: Yes Status: Chronic (6) Tobacco dependence Current Visit: Yes Status: Acute Patient currently smokes approximately 2 PPD and has done so for 20+ years. - Tobacco cessation counseling and education provided (7) (HFpEF) heart failure with preserved ejection fraction Current Visit: Yes Status: Acute Echocardiogram performed on 07/04/2018 demonstrated hyperdynamic LV with LVEF of 75% and normal LV chamber size, wall thickness, and function. Normal RV structure and function was found, with no significant valvular dysfunction or evidence of pulmonary hypertension. Low RA pressure was noted. Patient has been transitioned from IV to PO diuretic therapy. - Continued management per primary and cardiology teams History of Present Illness Consult date: 07/05/18 Requesting physician: Sindhu Lynn Reason for consult: COPD, hypoxemia, pneumonia, pulmonary hypertension, abnormal CXR/CT Chief complaint: Worsening dyspnea with sputum production History of present illness: Ms. Gutierrez is a 63-year old female with a history of hypertension, diabetes, SUNITA, and COPD. She arrived at [facility] as a transfer from an outside emergency department, where she had presented with acutely worsening shortness of breath and increased sputum production. Initial concern was for pulmonary embolism, as the patient has had increased lower extremity swelling; however, imaging was negative for evidence of pulmonary embolic disease. CTA was significant for patchy multifocal infiltrates, most confluent in the upper lobes, which was felt to most likely represent a multifocal pneumonia. She was noted to have an e nlarged main pulmonary artery, concerning for pulmonary hypertension. ABG was significant for hypercapnia and hypoxia. Pulmonology consult was placed in light of patient's multifactorial acute on ch ronic respiratory failure. Patient endorsed worsening shortness of breath, cough, and sputum production over the last 2-3 weeks with known sick contacts. She is currently a 2PPD smoker, and has been for approximately 21 years. She reports using an albuterol inhaler PRN, but is not on maintence therapy for her COPD. She does not use CPAP or BiPAP at home, and has reportedly been noncompliant with BiPAP recommendations since admission. Patient was seen and evaluated at the bedside. She reported some improvement in her respiratory symptoms; however, she has continued to have cough with sputum p roduction. In addition to symptoms discussed in her HPI, ROS is significant for recent fevers, chills, and orthopnea. She denied any acute complaints or concerns at the time of exam. Past Med Surg Social Fam HX - Past Medical History Medical history: CHF, diabetes, fibromyalgia, GERD, hyperlipidemia, hypertension, other Additional medical history: Deteriorated discs Psychiatric history: depression - Past Surgical History Surgical History: no surgical history - Social History Smoking Status: Current every day smoker Packs per day: 2 Smokeless Tobacco Status: No Alcohol use: none Drug use: none - Family History Mother Name: Lashonda Anthony Living Status: Cause of : Cancer Hx Family Cardiac Disorders: Yes (CHF) Hx Family Respiratory Disorders: Yes (COPD) Hx Family Cancer: Yes (Lung, brain) Hx Family GI Disorders: No Hx Family Genitourinary Disorders: No Hx Family Endocrine Disorder: No Hx Family Musculoskeletal Disorders: No Hx Family Neuromuscular Disorders: No Hx Family Neurologic Disorders: No Hx Family HEENT Disorders: No Hx Family Autoimmune Disorders: No Hx Family Reproductive Disorders: No Hx Family Psychosocial Disorders: No Hx Family Medical Disorders: No Father Name: Grey Hernandez Living Status: Age at : 38 Cause of : Murdered All Systems: The remainder of the systems were reviewed and are negative - Constitutional Constitutional: chills, fever(s), no night sweats - EENT Nose, mouth and throat: nasal congestion, nasal discharge - Cardiovascular Cardiovascular: dyspnea, dyspnea on exertion, edema, leg edema, pedal edema, no chest pain, no diaphoresis - Respiratory Respiratory: cough, dyspnea, dyspnea on exertion, chest congestion, excessive phlegm production, change in phlegm color, pain with cough, no hemoptysis, no wheezing - Genitourinary Genitourinary: flank pain, no difficulty urinating, no difficulty voiding, no urinary frequency Physical Examination Vital Signs: Vital Signs, Last 4 Hours Temp Pulse Resp BP Pulse Ox 07/05/18 07:24 18 90 07/05/18 06:50 98.1 F 94 16 155/87 91 General appearance: no acute distress, alert Eyes: nonicteric ENT: oropharynx moist Effort: normal Inspection: normal Auscultation: bilateral: diminished breath sounds, wheezes (Scattered wheezes) Cardiovascular: regular rate and rhythm Integumentary: normal Extremities: edema, other (Skin changes consistent with venous stasis in bilateral lower extremities; LE tender to palpation) Musculoskeletal: no deformities normal mental status, non-focal exam mood appropriate, affect normal Results - Laboratory Findings CBC and BMP: 07/05/18 03:26 07/05/18 03:26 ABG ABG pH 7.40 pH Units (7.32-7.45) 07/04/18 20:41 ABG pCO2 76 mmHg (35-45) H* 07/04/18 20:41 ABG pO2 58 mmHg (85-104) L 07/04/18 20:41 ABG O2 Saturation 88 % (95-98) L 07/04/18 20:41 PT/INR, D-dimer PT 14.3 Seconds (9.4-12.1) H 07/04/18 08:27 Abnormal lab findings: Abnormal lab results WBC 12.9 K/mcL (4.3-11.1) H 07/05/18 03:26 RBC 5.05 M/mcL (3.82-4.97) H 07/05/18 03:26 MCH 26.9 pg (28.0-33.3) L 07/05/18 03:26 MCHC 30.6 g/dL (31.6-35.5) L 07/05/18 03:26 RDW 14.6 % (11.5-14.5) H 07/05/18 03:26 Neutrophils # 10.7 K/mcL (1.6-8.9) H 07/05/18 03:26 Nucleated RBCs/100 WBC 0.4 /100 WBC (0) H 07/04/18 07:13 PT 14.3 Seconds (9.4-12.1) H 07/04/18 08:27 ABG pCO2 76 mmHg (35-45) H* 07/04/18 20:41 ABG pO2 58 mmHg (85-104) L 07/04/18 20:41 ABG HCO3 47 mEq/L (21-27) H 07/04/18 20:41 ABG Total CO2 49 mEq/L (20-26) H 07/04/18 20:41 ABG O2 Saturation 88 % (95-98) L 07/04/18 20:41 ABG Base Excess 17 mEq/L (-2 to 3) H 07/04/18 20:41 Chloride 89 mEq/L (98-107) L 07/05/18 03:26 Carbon Dioxide 42 mEq/L (23-29) H* 07/05/18 03:26 Est GFR (Non-Af Amer) 50 (> 60) L 07/05/18 03:26 Glucose 124 mg/dL (70-105) H 07/05/18 03:26 POC Glucose 107 mg/dL (70-99) H 07/04/18 16:32 Hemoglobin A1c 6.1 % (-5.6) H 07/04/18 07:13 Troponin I 0.13 ng/mL (< 0.04) H* 07/04/18 07:13 LDL Cholesterol, Calc 108 mg/dL (0-99) H 07/04/18 07:13 HDL Cholesterol 30 mg/dL (40-59) L 07/04/18 07:13 Cholesterol/HDL Ratio 5.2 (0-4.9) H 07/04/18 07:13 - Microbiology Findings Microbiology Findings: Microbiology, Last 48 Hours 07/04/18 01:50 Influenza Types A,B Antigen - Final Nasopharyngeal 07/04/18 00:20 Legionella Antigen - Final Urine,Clean Catch Streptococcus pneumoniae Antigen (M - Final - Clinical Findings Intake & Output: Intake & Output 07/04/18 07/05/18 07/05/18 23:59 07:59 15:59 Intake Total 620 / 620 100 / 100 120 / 120 Output Total 1850 / 1850 2200 / 2200 625 / 625 Balance -1230 / -1230 -2100 / -2100 -505 / -505 Weight 115.2 kg
--- NOTE | 2018-07-05 11:30 | Internal Med Progress Note ---
Hospitalist Progress Note - Encounter Date of Encounter: 07/05/18 Time of Encounter: 08:00 - Subjective Interval History: Patient was seen and examined at bedside. Reports that her shortness of breath has improved. Denies chest pain, palpitations, nausea, vomiting, diarrhea. Lower extremity edema has improved also. She was able to sleep overnight. Tolerating by mouth diet. Pain is controlled complaining of Dysuria, no frequency, mild flank pain - Exam Vitals: Temp Pulse Resp BP Pulse Ox 98.0 F 91 18 145/80 91 07/05/18 10:45 07/05/18 10:45 07/05/18 10:45 07/05/18 10:45 07/05/18 10:45 Exam: Vitals: Reviewed General: Morbidly obese woman sitting up in bed, speaks in full sentences, nasal cannula Skin: Warm, dry. Chronic skin changes in the bilateral lower extremities secondary to venous stasis HEENT: Dry mucous membranes. No conjunctivae pallor. Neck: Short and thick. Chest: Diminished thoracic expansion. Reduced breath sounds secondary to body habitus , crackles in khadijah posterior lung wilkins, no wheezing Heart: Distant heart sounds secondary to body habitus, Normal S1 & S2; rhythmic. No rubs or murmurs. Abdomen: Soft and nontender. Obese. Extremities: 1+ lower extremity edema with trophic skin changes of venous stasis. Neurological: Awake, alert and oriented to person, place and time. No focal deficits. Psych: Affect appropriate. - Assessment and Plan (1) Acute chronic obstructive pulmonary disease with respiratory failure Current Visit: Yes Status: Acute Assessment and Plan: We will start her on burst of steroids prednisone 40 mg for 5 days Continue with Levaquin WBC count trended up most likely secondary to steroids Urine antigens negative Influenza negative respiratory viral panel negative MRSA swab pending Oxygen via nasal cannula to keep saturations around 90% as she has chronic respiratory failure avoid over oxygenation. BiPAP when necessary for respiratory distress- and at nights for SUNITA Duo nebs every 4 hours will consider symbicort on Discharge Pulmonology consult will follow recommendations incentive spirometry CTPA- IMPRESSION: 1. No evidence of pulmonary embolic disease. 2. Enlarged main pulmonary artery consistent with pulmonary hypertension. 3. Patchy multifocal infiltrate, most confluent in the upper lobes. The distribution does not suggest areas of contusion but more likely represents a multifocal pneumonia. (2) Multifocal pneumonia Current Visit: Yes Status: Acute Assessment and Plan: management as per above (3) Congestive heart failure Current Visit: No Status: Chronic Assessment and Plan: Acute on chronic diastolic CHF Started on Lasix 40 mg IV twice a day- will change to 40 mg daily PO Fluid restriction Daily weights- negative 5L balance TTE: Impressions: LVEF 75%, hyperdynamic LV. Normal LV chamber size, wall thickness and function. Normal right ventricular structure and function. No significant valvular dysfunction. No evidence of pulmonary hypertension. Low RA pressure. (4) Acute respiratory failure with hypoxia and hypercapnia Current Visit: Yes Status: Acute Assessment and Plan: Likely multifactorial in etiology secondary to COPD exacerbation, pneumonia, acute congestive heart failure And non-adherence to medical therapy and CPAP She remains an ongoing 2 pack a day smoker even though she is on supplemental oxygen. was counseled extensively management as above. (5) Elevated troponin Current Visit: Yes Status: Acute Assessment and Plan: Most likely secondary to supply versus demand mismatch cannot rule out underlying CAD ruled out PE (well criteria 7.5) was in hypertensive emergency BP on arrival 191/122 Troponin 0.12 trended 0.13 Started on aspirin 81 mg lipitor 40 mg QHS unable to start BB as she is allergic CTPA ruled out PE 07/04/2018 (6) Hypertensive emergency Current Visit: Yes Status: Acute Assessment and Plan: BP on admission was 191/122 had elevated troponin 0.12 to 0.13 lasix, IMDUR and losartan with improvement in BP will add hydralazine 25 mg TID for better BP control (7) Hypertension Current Visit: Yes Status: Chronic Assessment and Plan: as Above (8) DM type 2 (diabetes mellitus, type 2) Current Visit: Yes Status: Chronic Assessment and Plan: Will place on insulin sliding scale A1c of 6.1 She was counseled on diet and exercise (9) Fall Current Visit: Yes Status: Acute Assessment and Plan: She reports a fall from bed this morning and hitting behind her ear. No traumatic injuries noted. No LOC. No focal deficits or signs of TBI. CT head on 07/04/18- NAD neuro checks Q4h Fall precautions ordered. PT/OT CM SW (10) DVT prophylaxis Current Visit: Yes Status: Acute Assessment and Plan: heparin SC - Time Spent with Patient Total time spent is greater than 50% in coordination of care (as documented) at patient's floor/unit and/or counseling patient: Internal Medicine: Result - Labs CBC & Chem 7: 07/05/18 03:26 07/05/18 03:26 Labs: Short CBC 07/05/18 Range/Units 03:26 WBC 12.9 H (4.3-11.1) K/mcL Hgb 13.6 (11.5-15.4) g/dL Hct 44.5 (35.3-44.9) % Plt Count 231 (140-400) K/mcL Neutrophils # 10.7 H (1.6-8.9) K/mcL BMP 07/05/18 03:26 Sodium 137 Potassium 3.9 Chloride 89 L Carbon Dioxide 42 H* BUN 20 Creatinine 1.10 Glucose 124 H Calcium 9.5 - ABG Interpretation ABG results: ABG ABG pH 7.40 pH Units (7.32-7.45) 07/04/18 20:41 ABG pCO2 76 mmHg (35-45) H* 07/04/18 20:41 ABG pO2 58 mmHg (85-104) L 07/04/18 20:41 ABG O2 Saturation 88 % (95-98) L 07/04/18 20:41 PT/INR, D-dimer PT 14.3 Seconds (9.4-12.1) H 07/04/18 08:27 - Impressions Impressions Echocardiogram 07/04/18 11:00 Impressions: LVEF 75%, hyperdynamic LV. Normal LV chamber size, wall thickness and function. Normal right ventricular structure and function. No significant valvular dysfunction. No evidence of pulmonary hypertension. Low RA pressure. Left Ventricular Wall Motion: Rest Echo Findings The apex, apical inferior, mid inferior, basal inferior, apical anterior, mid anterior, basal anterior, apical septal, mid inferior septal, basal inferior septal, apical lateral, mid anterior lateral, basal anterior lateral, mid anterior septal, mid inferior lateral, basal anterior septal and basal inferior lateral beyer were hyperkinetic. Findings: Study Quality * Technically adequate exam. ECG Findings * Normal sinus rhythm. Left Ventricle * LVEF 75%, hyperdynamic LV. * Normal LV chamber size, wall thickness and function. * Normal left ventricular diastolic function. Right Ventricle * Normal right ventricular structure and function. Left Atrium * Normal left atrial size. Right Atrium * Normal right atrial size. Interatrial Septum * Interatrial septum not well evaluated. * No evidence of PFO by color Doppler. Aortic Valve * Aortic valve not well visualized. * No aortic stenosis. Elevated LVOT gradient likely due to hyperdynamic LV. * No aortic regurgitation. Mitral Valve * Normal mitral valve structure and function. * No mitral stenosis. * No mitral regurgitation. Tricuspid Valve * Normal tricuspid valve structure and function. * No tricuspid stenosis. * No tricuspid regurgitation. * Unable to estimate RVSP due to lack of TR jet. * No evidence of pulmonary hypertension. * Estimated RA pressure is 3 mmHg. Pulmonic Valve * Pulmonic valve is not well visualized. * No pulmonic stenosis. * Trace pulmonic regurgitation. Aorta * Normally sized aortic root. Pericardium * The pericardium appears normal. IVC * Normal IVC dimensions and inspiratory collapse. Chest CTA 07/04/18 13:55 IMPRESSION: 1. No evidence of pulmonary embolic disease. 2. Enlarged main pulmonary artery consistent with pulmonary hypertension. 3. Patchy multifocal infiltrate, most confluent in the upper lobes. The distribution does not suggest areas of contusion but more likely represents a multifocal pneumonia. D/ / 07/04/2018 16:55:01 Grey Coates MD / juan antonio Interpreting Provider: Grey Coates MD Head CT 07/04/18 13:55 IMPRESSION: No acute intracranial abnormality. D/ / Yaakov Chavez / Yaakov Chavez Interpreting Provider: Yaakov Chavez Consult Discharge Plan - Plan Referrals: NONE,PCP [Primary Care Provider] - (3) Congestive heart failure Qualifiers: Heart failure type: diastolic Heart failure chronicity: acute on chronic Qualified Code(s): I50.33 - Acute on chronic diastolic (congestive) heart failure (7) Hypertension Qualifiers: Hypertension type: essential hypertension Qualified Code(s): I10 - Essential (primary) hypertension (8) DM type 2 (diabetes mellitus, type 2) Qualifiers: Diabetes mellitus residential insulin use: with remote computer terminal operator use Diabetes mellitus complication status: with unspecified complications Qualified Code(s): E11.8 - Type 2 diabetes mellitus with unspecified complications; Z79.4 - emt intermediate (current) use of insulin (9) Fall Qualifiers: Encounter type: initial encounter Qualified Code(s): W19.XXXA - Unspecified fall, initial encounter
[2018-07-05] MEDS ORDERED: hydrALAZINE 25 MG TABLET PO PRN (11:39)
[2018-07-05 13:46] LABS: Bilirubin,Urine Negative (Negative); Blood,Urine Moderate (Negative); Clarity,Urine Clear (Clear); Color,Urine Yellow (Yellow); Glucose,Urine (UA) Normal (Normal); Ketones,Urine Negative (Negative); Leukocyte Esterase,Urine Trace (Negative); Nitrite,Urine Negative (Negative); Protein,Urine Trace mg/dL (Neg-Trace)
[2018-07-05 13:48] LABS: Bacteria,Urine None Seen per hpf (None-Few); Hyaline Casts,Urine None Seen per lpf (None-Few); RBC,Urine 50-100 per hpf (0-3); Squamous Epithelial Cell,Urine Many per lpf (None-Few); WBC,Urine 0-3 per hpf (0-3)
[2018-07-05] MEDS: hydrALAZINE 25 MG TABLET PO SCH (16:51)
[2018-07-05] MEDS: Levofloxacin 500 MG/100 ML 500 MG/100 ML BAG IVPB SCH (17:59)
[2018-07-06] MEDS: hydrALAZINE 25 MG TABLET PO SCH ×2 (01:20→09:39)
[2018-07-06] MEDS: GuaiFENesin Liq 200 MG/10 ML UDC PO SCH ×2 (01:20→06:27)
[2018-07-06] MEDS ORDERED: *HR* LORazepam 2 MG/ML VIAL IVP ONE (03:24)
[2018-07-06] MEDS: Ipratropium/Albuterol Neb 3 ML IH SCH ×3 (04:33→11:52)
[2018-07-06 05:03] LABS: Basophils # 0.1 K/mcL (0.0-0.2); Basophils % 0.5 %; Eosinophils # 0.1 K/mcL (0.0-0.6); Eosinophils % 0.4 %; Hematocrit 46.7 % (35.3-44.9); Hemoglobin 14.1 g/dL (11.5-15.4); Immature Granulocytes % 1.8 % (0-4); Lymphocytes # 1.6 K/mcL (0.6-4.6); Lymphocytes % 11.7 %; Mean Corpuscular HGB Conc 30.2 g/dL (31.6-35.5); Mean Corpuscular Hemoglobin 26.9 pg (28.0-33.3); Mean Platelet Volume 9.6 fL (9.4-12.4); Monocytes # 1.2 K/mcL (0.0-1.3); Monocytes % 8.6 %; Neutrophils # 10.4 K/mcL (1.6-8.9); Platelet Count 223 K/mcL (140-400); Red Blood Count 5.25 M/mcL (3.82-4.97); Red Cell Distribution Width 14.9 % (11.5-14.5)
[2018-07-06 05:20] LABS: BUN/Creatinine Ratio 24 (6-26); Blood Urea Nitrogen 25 mg/dL (8-23); Calcium 9.7 mg/dL (8.6-10.3); Carbon Dioxide 39 mEq/L (23-29); Chloride 89 mEq/L (98-107); Glucose 137 mg/dL (70-105); Osmolality,Calculated 285 (280-300); Potassium 3.8 mEq/L (3.5-5.1); Sodium 134 mEq/L (136-145); eGFR For Non-African Americans 53 (> 60)
[2018-07-06] MEDS: *HR* Heparin 5,000 UNIT/ML VIAL SQ SCH (06:36)
[2018-07-06 07:09] VITALS: BP 141/95
[2018-07-06] MEDS: Insulin LISPRO 300 UNITS/3 ML VIAL SQ SCH (07:37)
[2018-07-06] MEDS ORDERED: Furosemide 40 MG TABLET PO SCH (09:00)
[2018-07-06] MEDS: acetaZOLAMIDE 250 MG TABLET PO SCH (09:39)
[2018-07-06] MEDS: Isosorbide MONOnitrate (24 HR) 60 MG TAB.ER.24H PO SCH (09:39)
[2018-07-06] MEDS: Aspirin 81 MG TAB.CHEW PO SCH (09:40)
[2018-07-06] MEDS: predniSONE 20 MG TABLET PO SCH (09:40)
[2018-07-06] MEDS: Clotrimazole 1% CRM 15 GM TUBE TP SCH (09:40)
[2018-07-06] MEDS ORDERED: Budesonide/Formoterol 160/4.5 1 PUFF INH IH SCH (10:00)
--- NOTE | 2018-07-06 11:43 | Discharge Summary ---
- NOTES TO OUTPATIENT PROVIDER Notes to Outpatient Provider: follow with pulmonology in 2-4 weeks to optimize COPD management follow-up pneumonia and PFTs. follow cbc and BMp in one week for WBC count and elctrolytes Orders not resulted at time of discharge: Pending orders 07/03/18 23:13 Culture,Sputum with Gram Stain [RM] Stat 07/05/18 17:18 Culture,Blood [BC] Routine 07/07/18 04:00 Basic Metabolic Panel AM 0400 Complete Blood Count [HEME] AM 0400 Date of Encounter: 07/06/18 Time of Encounter: 11:32 - Discharge Diagnosis (1) Acute chronic obstructive pulmonary disease with respiratory failure Priority: Primary Status: Acute (2) Multifocal pneumonia Priority: Secondary Status: Acute (3) Congestive heart failure Priority: Secondary Status: Chronic Qualifiers: Heart failure type: diastolic Heart failure chronicity: acute on chronic Qualified Code(s): I50.33 - Acute on chronic diastolic (congestive) heart failure (4) Acute respiratory failure with hypoxia and hypercapnia Priority: Secondary Status: Acute (5) Elevated troponin Priority: Secondary Status: Acute (6) Hypertensive emergency Priority: Secondary Status: Acute (7) Hypertension Priority: Secondary Status: Chronic Qualifiers: Hypertension type: essential hypertension Qualified Code(s): I10 - Essential (primary) hypertension (8) DM type 2 (diabetes mellitus, type 2) Priority: Secondary Status: Chronic Qualifiers: Diabetes mellitus [facility] insulin use: with [facility] use Diabetes mellitus complication status: with unspecified complications Qualified Code(s): E11.8 - Type 2 diabetes mellitus with unspecified complications; Z79.4 - manager long term care (current) use of insulin (9) Fall Priority: Secondary Status: Acute Qualifiers: Encounter type: initial encounter Qualified Code(s): W19.XXXA - Unspecified fall, initial encounter (10) DVT prophylaxis Priority: Secondary Status: Acute Hospital course: "Quiana Gutierrez is a 63-year-old morbidly obese woman who is an active smoker with a history of hypertension, diabetes, obstructive sleep apnea, COPD and heart failure who is brought here on transfer from [place] where she went to with complaints of increasing shortness of breath. She states that over the past 2-3 week she has had cough that is productive of discolored sputum as well as a sensation of chest congestion, sore throat, rhinorrhea and shortness of breath. She has had no fever but does report having chills sometimes. She st ates that her respiratory symptoms have been progressively worsened and decided to seek medical attention today because this morning after waking up she fell out of bed and hit her head. She did not pass out. She also complains of increasing leg swelling. ER she was given aerosol treatments and a dose of diuretic, started on levofloxacin and subsequently transferred here for further care. On my assessment she is in notable discomfort and ill-appearing. Lab work revealed a WBC of 12, elevated serum bicarbonate and a troponin of 0.12. EKG reviewed by me showed sinus rhythm with nonspecific T-wave abnormalities." Patient presented with above presentation and had above emergency department course. She was started on BiPAP, along with IV Lasix as ABG showed hypoxic and hypercapnic respiratory failure. She was started on losartan and and/or and hydralazine with control of her blood pressure.Urine antigens negative Influenza negative respiratory viral panel negative. She demonstrated elevated troponins on admission which trended flat. Elevated troponin was most likely secondary to demand ischemia as she was in hypertensive emergency on admission with blood pressure of 191/122. Due to risk factors CTPA was performed which was negative for pulmonary embolism however it did show multifocal pneumonia so antibiotics on admission were continued. She is to continue a ten-day course. In addition she was started on steroids and is to have a 2 week taper on discharge. CT head did not show any acute abnormalities as she was status post fall prior to admission. Cardiology was consulted and recommended outpatient follow-up. She understands that she needs close follow-up at the pulmonology team. Nursing staff aware to make appointment for patient in 2-4 weeks to optimize COPD management follow-up pneumonia and PFTs etc Patient refused BiPAP she understands the risks and benefit associated with refusing BiPAP which was discussed with her by myself, family welfare social work professor and wilver tants however she refuses to wear BiPAP understanding that the risks of not complying with BiPAP includes but not limited to respiratory failure requiring intubation and . She still would like to refuse BiPAP. PT/OT/social work and case management recommendations appreciated she was stable to be discharged to [facility]. Weight loss, diet and nutrition encouraged Tobacco cessation counseling given previous provided the patient with nicotine patch For PCP to follow-up CBC and BMP for electrolytes and white blood cell count in one week. Discharge discussed with: patient, nurse, social work, case management, information services consultant Time spent discussing smoking cessation with patient: more than 10 minutes - Time Spent with Patient Total time spent providing and/or coordinating discharge services: Greater than 30 minutes (45) - Discharge Medications Prescriptions: Ipratropium/Albuterol Neb [Duoneb] 3 ml IH [id number] PRN #30 inhsol PRN Reason: Dyspnea hydrALAZINE [HydrALAZINE] 25 mg PO Q8HR 30 Days #90 tablet Aspirin 81 mg PO DAILY #30 tab.chew Atorvastatin [Lipitor] 40 mg PO HS #30 tablet Budesonide/Formoterol 160/4.5 [Symbicort 160/4.5] 2 puff IH BIDR #1 inh Isosorbide MONOnitrate (24 HR) [Imdur] 60 mg PO DAILY #30 tab.er.24h levoFLOXacin [Levaquin] 500 mg PO Q24H 7 Days #7 tablet Losartan [Cozaar] 100 mg PO DAILY 30 Days #120 tablet predniSONE [PredniSONE] 10 mg PO TAPER 7 Days #21 tablet predniSONE [PredniSONE] 40 mg PO DAILY 7 Days #14 tablet Home Medications: metFORMIN [Glucophage] 1,000 mg PO BIDWM 09/23/15 [History] Esomeprazole Magnesium [Nexium] 40 mg PO BID 01/30/17 [History] Albuterol Sulfate [Albuterol Inhaler] 1 - 2 puff IH Q6HR PRN 07/03/18 [History] DiphenhydraMINE [Benadryl] 25 mg PO Q4HR 07/03/18 [History] Furosemide [Lasix] 40 mg PO DAILY 07/03/18 [History] Stella-3 Acid Ethyl Esters [Lovaza] 4 gm PO DAILY 07/05/18 [History] Aspirin 81 mg PO DAILY #30 tab.chew 07/06/18 [Rx] Atorvastatin [Lipitor] 40 mg PO HS #30 tablet 07/06/18 [Rx] Budesonide/Formoterol 160/4.5 [Symbicort 160/4.5] 2 puff IH BIDR #1 inh 07/06/18 [Rx] Ipratropium/Albuterol Neb [Duoneb] 3 ml IH [id number] PRN #30 inhsol 07/06/18 [Rx] Isosorbide MONOnitrate (24 HR) [Imdur] 60 mg PO DAILY #30 tab.er.24h 07/06/18 [Rx] Losartan [Cozaar] 100 mg PO DAILY 30 Days #120 tablet 07/06/18 [Rx] hydrALAZINE [HydrALAZINE] 25 mg PO Q8HR 30 Days #90 tablet 07/06/18 [Rx] levoFLOXacin [Levaquin] 500 mg PO Q24H 7 Days #7 tablet 07/06/18 [Rx] predniSONE [PredniSONE] 10 mg PO TAPER 7 Days #21 tablet 07/06/18 [Rx] predniSONE [PredniSONE] 40 mg PO DAILY 7 Days #14 tablet 07/06/18 [Rx] Allergies/Adverse Reactions: Allergy/AdvReac Type Severity Reaction Status Date / Time amlodipine [From [facility]] Allergy Palpitation Verified 07/04/18 02:07 s Methadone Allergy See Verified 07/03/18 17:01 Comments metoprolol Allergy Itching Verified 07/03/18 17:01 Date of admission: 07/03/18 23:08 Primary care physician: PCP NONE Consults: 07/04/18 13:30 Consult to Case Management [CONS] Routine Comment: Consult to Nutrition [CONS] Routine Comment: Consulting Provider: NUTRITION Reason for Dietary Consult: PO Supplementation Consult to Physical Therapy [CONS] Routine Comment: Evaluate, develop and implement POC Reason for Consult: dispostion Does patient have active BEDREST order?: No Is patient medically & hemodynamically stable?: Yes Patient assessed for mobility or mobilized this visit?: Yes OT [Consult to Occupational Therapy] [CONS] Routine Comment: Evaluate, develop and implement POC Reason for Consult: disposition Does patient have active BEDREST order?: No Is patient medically & hemodynamically stable?: Yes Patient assessed for mobility or mobilized this visit?: Yes 07/04/18 17:30 Consult to Cardiology [CONS] Routine Comment: Consulting Provider: Cardiology [place] Reason for Consult: elevated troponin Call Completed: No 07/05/18 07:31 Consult to Pulmonology [CONS] Routine Consulting Provider: [facility] [place] Reason for Consult: SUNITA chronic respiratory acidosis, COPD and multifocal PNA Call Completed: No - Constitutional Vitals: Temp Pulse Resp BP Pulse Ox 97.7 F 97 16 141/95 95 07/06/18 07:06 07/06/18 07:06 07/06/18 07:53 07/06/18 07:06 07/06/18 07:53 Exam: Vitals: Reviewed General: Morbidly obese woman sitting up in bed, speaks in full sentences, nasal cannula Skin: Warm, dry. Chronic skin changes in the bilateral lower extremities secondary to venous stasis HEENT: Dry mucous membranes. No conjunctivae pallor. Neck: Short and thick. Chest: Diminished thoracic expansion. Reduced breath sounds secondary to body habitus , crackles in khadijah posterior lung wilkisn, no wheezing Heart: Distant heart sounds secondary to body habitus, Normal S1 & S2; rhythmic. No rubs or murmurs. Abdomen: Soft and nontender. Obese. Extremities: 1+ lower extremity edema ( improved) with trophic skin changes of venous stasis. Neurological: Awake, alert and oriented to person, place and time. No focal deficits. Psych: Affect appropriate. - Patient Status Disposition: Transfer Hospital Swing Bed Condition: Fair Functional capacity at discharge: uses cane/walker Overall status at discharge: patient is progressing back to baseline - Discharge Instructions Follow Up With: NONE,PCP [Primary Care Provider] - - Diet and Activity Activity: as per physical therapy, increase activity as tolerated Diet: diabetic diet (Cardiac)
--- NOTE | 2018-07-06 11:54 | Physician Discharge Referral ---
ExtendedCare Referral Info Provider in Charge after Transfer: PCP Institutional Level of Care: Skilled - Diagnosis (1) Acute chronic obstructive pulmonary disease with respiratory failure Priority: Primary Status: Acute (2) Multifocal pneumonia Priority: Secondary Status: Acute (3) Congestive heart failure Priority: Secondary Status: Chronic (4) Acute respiratory failure with hypoxia and hypercapnia Priority: Secondary Status: Acute (5) Elevated troponin Priority: Secondary Status: Acute (6) Hypertensive emergency Priority: Secondary Status: Acute (7) Hypertension Priority: Secondary Status: Chronic (8) DM type 2 (diabetes mellitus, type 2) Priority: Secondary Status: Chronic (9) Fall Status: Acute (10) DVT prophylaxis Status: Acute - Transfer Medications Prescriptions: Ipratropium/Albuterol Neb [Duoneb] 3 ml IH [id number] PRN #30 inhsol PRN Reason: Dyspnea hydrALAZINE [HydrALAZINE] 25 mg PO Q8HR 30 Days #90 tablet Aspirin 81 mg PO DAILY #30 tab.chew Atorvastatin [Lipitor] 40 mg PO HS #30 tablet Budesonide/Formoterol 160/4.5 [Symbicort 160/4.5] 2 puff IH BIDR #1 inh Isosorbide MONOnitrate (24 HR) [Imdur] 60 mg PO DAILY #30 tab.er.24h levoFLOXacin [Levaquin] 500 mg PO Q24H 7 Days #7 tablet Losartan [Cozaar] 100 mg PO DAILY 30 Days #120 tablet predniSONE [PredniSONE] 10 mg PO TAPER 7 Days #21 tablet predniSONE [PredniSONE] 40 mg PO DAILY 7 Days #14 tablet Home Medications: metFORMIN [Glucophage] 1,000 mg PO BIDWM 09/23/15 [History] Esomeprazole Magnesium [Nexium] 40 mg PO BID 01/30/17 [History] Albuterol Sulfate [Albuterol Inhaler] 1 - 2 puff IH Q6HR PRN 07/03/18 [History] DiphenhydraMINE [Benadryl] 25 mg PO Q4HR 07/03/18 [History] Furosemide [Lasix] 40 mg PO DAILY 07/03/18 [History] [place]-3 Acid Ethyl Esters [Lovaza] 4 gm PO DAILY 07/05/18 [History] Aspirin 81 mg PO DAILY #30 tab.chew 07/06/18 [Rx] Atorvastatin [Lipitor] 40 mg PO HS #30 tablet 12/21/18 [Rx] Budesonide/Formoterol 160/4.5 [Symbicort 160/4.5] 2 puff IH BIDR #1 inh 07/06/18 [Rx] Ipratropium/Albuterol Neb [Duoneb] 3 ml IH [id number] PRN #30 inhsol 07/06/18 [Rx] Isosorbide MONOnitrate (24 HR) [Imdur] 60 mg PO DAILY #30 tab.er.24h 07/06/18 [Rx] Losartan [Cozaar] 100 mg PO DAILY 30 Days #120 tablet 07/06/18 [Rx] hydrALAZINE [HydrALAZINE] 25 mg PO Q8HR 30 Days #90 tablet 07/06/18 [Rx] levoFLOXacin [Levaquin] 500 mg PO Q24H 7 Days #7 tablet 07/06/18 [Rx] predniSONE [PredniSONE] 10 mg PO TAPER 7 Days #21 tablet 07/06/18 [Rx] predniSONE [PredniSONE] 40 mg PO DAILY 7 Days #14 tablet 07/06/18 [Rx] Allergies/Adverse Reactions: Allergy/AdvReac Type Severity Reaction Status Date / Time amlodipine [From [facility]] Allergy Palpitation Verified 07/04/18 02:07 s Methadone Allergy See Verified 07/03/18 17:01 Comments metoprolol Allergy Itching Verified 07/03/18 17:01 - Respiratory Orders Oxygen / L per min, Other (CPAP at night's if she is compliant- she refuses and understands the risks and benefits.) Smoking Cessation: Smoking cessation has been advised. For more information, call the [place] Tobacco Quit Line at 0-989-PBZH-NOW. - Lab Orders Lab Orders: CBC (Follow BMP for electrolytes in one week) - Ancillary Orders May use pressure relief devices daily prn - Advance Directives Code Status: Full Code - Mobility Orders Ambulate - Rehabiliation Orders Rehab Potential: Fair Rehab Orders: Evaluation for Physical Therapy, Evaluation for Occupational Therapy, Evaluation for Speech Therapy - Diet Orders Cardiac (Diabetic) CERTIFICATION: I certify that the transfer of the above named patient to an Extended Care Facility is necessary for the continuing treatment of the diagnosis listed. The above information is true and accurate reflection of patient's current condition. Confidential - Redisclosure prohibited without a patient's written consent.
[2018-07-06] MEDS ORDERED: levoFLOXacin 500 MG TABLET PO SCH (18:00)
--- NOTE | 2018-07-06 18:09 | Electrocardiograph Report ---
[place] [id number] Test Date: 2018-07-04 Pat Name: Quiana Gutierrez Department: 111 Room: 2N3 Gender: F Family Medicine Physician Assistant: : [id number] Requested By: Manisha Thurston Order Number: [id number] Reading MD: Star Ballesteros Measurements Intervals [place] Rate: 91 P: 9 NH: 172 QRS: 26 QRSD: 89 T: 69 QT: 354 QTc: 403 Interpretive Statements SINUS RHYTHM NONSPECIFIC T-WAVE ABNORMALITY Electronically Signed On 07-06-2018 18:07:56 EST by Star Ballesteros
== END 2018-07-06 13:57 | disposition other institution (70) | DRG 193 ==
LOC: 2NENU
PROVIDERS: ADMIT Internal Medicine; ATTEND Internal Medicine

== ENCOUNTER 2019-10-05 22:38 | Inpatient (IN) ==
[2019-10-06] MEDS ORDERED: Naloxone 0.4 MG/ML INJ IVP PRN (01:17)
[2019-10-06] MEDS ORDERED: Ondansetron 4 MG/2 ML VIAL IVP PRN (01:17)
[2019-10-06] MEDS ORDERED: Ipratropium/Albuterol Neb 3 ML IH PRN (01:20)
[2019-10-06] MEDS ORDERED: *HR* Dextrose 50 % in Water (Syg) 50 ML SYRINGE IVP PRN (01:23)
[2019-10-06] MEDS ORDERED: Dextrose Gel 15 GM/37.5 ML TUBE PO PRN ×2 (01:23)
[2019-10-06] MEDS ORDERED: D5% in Water 1,000 ML IVC PRN (01:23)
[2019-10-06] MEDS: Gabapentin 300 MG CAPSULE PO SCH ×4 (01:37→20:03)
[2019-10-06] MEDS: *HR* Heparin 5,000 UNIT/ML VIAL SQ SCH ×3 (05:25→20:37)
[2019-10-06] MEDS: MethylPREDNISolone 40 MG/ML VIAL IVP SCH ×2 (05:25→15:45)
[2019-10-06 05:57] LABS: Eosinophils % 0.2 %; Hemoglobin 11.1 g/dL (11.5-15.4)
[2019-10-06 05:59] LABS: Basophils % 0.3 %; Immature Granulocytes % 1.2 % (0-4); Lymphocytes # 0.7 K/mcL (0.6-4.6); Lymphocytes % 6.6 %; Mean Corpuscular HGB Conc 27.8 g/dL (31.6-35.5); Mean Corpuscular Hemoglobin 24.8 pg (28.0-33.3); Mean Corpuscular Volume 89.3 fL (83.0-100.0); Mean Platelet Volume 10.6 fL (9.4-12.4); Monocytes # 0.2 K/mcL (0.0-1.3); Monocytes % 2.2 %; Nucleated Red Blood Cells 0.3 /100 WBC (0); Platelet Count 197 K/mcL (140-400); Red Blood Count 4.48 M/mcL (3.82-4.97); Red Cell Distribution Width 15.4 % (11.5-14.5); Segmented Neutrophils % 89.5 %
[2019-10-06] MEDS ORDERED: Insulin LISPRO 300 UNITS/3 ML VIAL SQ SCH (06:00)
[2019-10-06 06:25] LABS: BUN/Creatinine Ratio 15 (6-26); Blood Urea Nitrogen 16 mg/dL (8-23); Calcium 8.9 mg/dL (8.6-10.3); Carbon Dioxide 35 mEq/L (23-29); Chloride 93 mEq/L (98-107); Glucose 290 mg/dL (70-105); Osmolality,Calculated 292 (280-300); Potassium 4.8 mEq/L (3.5-5.1); Sodium 135 mEq/L (136-145); Troponin I 0.22 ng/mL (< 0.04); eGFR For African Americans > 60 (> 60); eGFR For Non-African Americans 50 (> 60)
[2019-10-06 06:38] LABS: Platelet Estimate Normal (Normal); Polychromasia 1+ (Not Present)
[2019-10-06] MEDS ORDERED: Perflutren Lipid Microsphere 1.3 ML in 0.9 % Sodium Chloride 8.7 ML IVP ONE (08:43)
[2019-10-06] MEDS ORDERED: Furosemide 40 MG/4 ML VIAL IVP ONE (08:59)
[2019-10-06] MEDS ORDERED: cefTRIAXone 1,000 MG in 0.9 % Sodium Chloride Mini Bag 100 ML IVPB SCH (09:00)
[2019-10-06] MEDS ORDERED: Azithromycin 500 MG in 0.9 % Sodium Chloride 250 ML IVPB SCH (09:00)
[2019-10-06] MEDS: Aspirin 81 MG TAB.CHEW PO SCH (09:10)
[2019-10-06 11:42] LABS: ABG Base Excess 5 mEq/L (-2 to 3); ABG HCO3 33 mEq/L (21-27); ABG Oxygen Saturation 94 % (95-98); ABG PCO2 58 mmHg (35-45); ABG PH 7.37 pH Units (7.32-7.45); ABG PO2 76 mmHg (85-104); ABG TCO2 35 mEq/L (20-26)
[2019-10-06] MEDS: Budesonide/Formoterol 160/4.5 1 PUFF INH IH SCH ×2 (11:47→21:41)
[2019-10-06] MEDS: Insulin LISPRO 300 UNITS/3 ML VIAL SQ SCH ×2 (15:52→21:08)
[2019-10-06] MEDS: *HR* Labetalol 20 MG/4 ML SYRINGE IVP PRN (20:37)
[2019-10-06] MEDS: Insulin DETEMIR 100 UNIT/ML X5UNITS SQ SCH (21:09)
[2019-10-07 03:23] LABS: BUN/Creatinine Ratio 23 (6-26); Blood Urea Nitrogen 24 mg/dL (8-23); Carbon Dioxide 40 mEq/L (23-29); Chloride 91 mEq/L (98-107); Glucose 247 mg/dL (70-105); Osmolality,Calculated 290 (280-300); Potassium 5.2 mEq/L (3.5-5.1); Sodium 134 mEq/L (136-145); eGFR For African Americans > 60 (> 60); eGFR For Non-African Americans 52 (> 60)
[2019-10-07 04:08] LABS: ABG Base Excess 16 mEq/L (-2 to 3); ABG HCO3 44 mEq/L (21-27); ABG Oxygen Saturation 94 % (95-98); ABG PCO2 70 mmHg (35-45); ABG PO2 74 mmHg (85-104); ABG TCO2 46 mEq/L (20-26)
[2019-10-07] MEDS: *HR* Labetalol 20 MG/4 ML SYRINGE IVP PRN (04:20)
[2019-10-07] MEDS: MethylPREDNISolone 40 MG/ML VIAL IVP SCH ×2 (05:25→17:09)
[2019-10-07] MEDS: *HR* Heparin 5,000 UNIT/ML VIAL SQ SCH ×3 (05:25→22:11)
[2019-10-07] MEDS: Aspirin 81 MG TAB.CHEW PO SCH (07:41)
[2019-10-07] MEDS: Gabapentin 300 MG CAPSULE PO SCH ×3 (07:41→22:06)
[2019-10-07] MEDS: Insulin LISPRO 300 UNITS/3 ML VIAL SQ SCH ×4 (07:41→22:10)
[2019-10-07] MEDS ORDERED: Furosemide 40 MG/4 ML VIAL IVP ONE (07:52)
[2019-10-07] MEDS: Budesonide/Formoterol 160/4.5 1 PUFF INH IH SCH ×2 (11:06→20:04)
[2019-10-07 15:34] LABS: BUN/Creatinine Ratio 25 (6-26); Blood Urea Nitrogen 26 mg/dL (8-23); Calcium 9.4 mg/dL (8.6-10.3); Carbon Dioxide 40 mEq/L (23-29); Chloride 91 mEq/L (98-107); Glucose 247 mg/dL (70-105); Osmolality,Calculated 297 (280-300); Potassium 4.4 mEq/L (3.5-5.1); Sodium 137 mEq/L (136-145); eGFR For African Americans > 60 (> 60); eGFR For Non-African Americans 52 (> 60)
[2019-10-07] MEDS: Insulin DETEMIR 100 UNIT/ML X5UNITS SQ SCH (22:08)
[2019-10-07] MEDS: Furosemide 40 MG/4 ML VIAL IVP SCH (22:11)
[2019-10-08] MEDS: *HR* Labetalol 20 MG/4 ML SYRINGE IVP PRN (00:21)
[2019-10-08 01:16] LABS: Calcium 9.5 mg/dL (8.6-10.3); Potassium 4.4 mEq/L (3.5-5.1)
[2019-10-08] MEDS: MethylPREDNISolone 40 MG/ML VIAL IVP SCH (06:15)
[2019-10-08] MEDS: *HR* Heparin 5,000 UNIT/ML VIAL SQ SCH (06:15)
[2019-10-08] MEDS: Budesonide/Formoterol 160/4.5 1 PUFF INH IH SCH (07:35)
[2019-10-08] MEDS: Insulin LISPRO 300 UNITS/3 ML VIAL SQ SCH (09:13)
[2019-10-08] MEDS: Gabapentin 300 MG CAPSULE PO SCH (09:14)
[2019-10-08] MEDS: Aspirin 81 MG TAB.CHEW PO SCH (09:14)
[2019-10-08] MEDS: Furosemide 40 MG/4 ML VIAL IVP SCH (09:14)
[2019-10-08 10:51] VITALS: BP 160/84
[2019-10-08] MEDS ORDERED: FLU Vac QV 19-20 (6Month+)/PF 0.5 ML SYRINGE IM ONE (16:18)
== END 2019-10-08 17:05 | disposition home or self-care (01) | DRG 280 ==
LOC: 2NENU → SUATTDRO 10-06 00:15
PROVIDERS: ADMIT Internal Medicine; ATTEND Family Medicine

== ENCOUNTER 2020-11-12 01:41 | Inpatient (IN) ==
[2020-11-12] MEDS ORDERED: Naloxone 0.4 MG/ML INJ IVP PRN (02:17)
[2020-11-12] MEDS ORDERED: Ondansetron 4 MG/2 ML VIAL IVP PRN (02:17)
[2020-11-12] MEDS ORDERED: Dextrose Gel 15 GM/37.5 ML TUBE PO PRN ×2 (02:23)
[2020-11-12] MEDS ORDERED: D5% in Water 1,000 ML IVC PRN (02:23)
[2020-11-12] MEDS ORDERED: *HR* Dextrose 50 % in Water (Vial) 50 ML VIAL IVP PRN (02:23)
[2020-11-12 03:00] LABS: Basophils % 0.3 %; Eosinophils % 0.3 %; Hemoglobin 8.9 g/dL (11.5-15.4); Immature Granulocytes % 0.5 % (0-4); Lymphocytes # 0.3 K/mcL (0.6-4.6); Lymphocytes % 8.5 %; Mean Corpuscular HGB Conc 28.7 g/dL (31.6-35.5); Mean Corpuscular Hemoglobin 22.9 pg (28.0-33.3); Mean Corpuscular Volume 79.7 fL (83.0-100.0); Mean Platelet Volume 9.8 fL (9.4-12.4); Monocytes # 0.2 K/mcL (0.0-1.3); Monocytes % 5.3 %; Neutrophils # 3.2 K/mcL (1.6-8.9); Platelet Count 156 K/mcL (140-400); Red Blood Count 3.89 M/mcL (3.82-4.97); Red Cell Distribution Width 16.1 % (11.5-14.5); Segmented Neutrophils % 85.1 %; White Blood Count 3.8 K/mcL (4.3-11.1)
[2020-11-12 03:09] LABS: INR 1.2; Prothrombin Time 13.4 Seconds (9.4-12.1)
[2020-11-12 03:11] LABS: Activated Partial Thrombo Time 26.9 Seconds (26.0-36.0)
[2020-11-12] MEDS ORDERED: *HR* Metoprolol 5 MG/5 ML VIAL IVP ONE (03:22)
[2020-11-12 03:39] LABS: Albumin 3.6 g/dL (3.5-5.7); Albumin/Globulin Ratio 1.1 (1.1-2.2); Bilirubin,Total 0.6 mg/dL (0.3-1.0); Calcium 8.2 mg/dL (8.6-10.3); Globulin 3.2 g/dL (2.4-3.5); Phosphorous 3.2 mg/dL (2.7-4.5); Total Protein 6.8 g/dL (6.4-8.9); Troponin I 0.38 ng/mL (< 0.04)
[2020-11-12 03:49] LABS: Hypochromasia Present (Not Present); Platelet Estimate Normal (Normal); Smudge Cells Present (Not Present)
[2020-11-12] MEDS ORDERED: Perflutren Lipid Microsphere 1.3 ML in 0.9 % Sodium Chloride 8.7 ML IVP PRN (04:01)
[2020-11-12] MEDS ORDERED: Nitroglycerin 0.4 MG TAB.SUBL SL PRN (04:01)
[2020-11-12] MEDS ORDERED: Aspirin 325 MG TABLET PO ONE (04:01)
[2020-11-12] MEDS ORDERED: *HR* Heparin 5,000 UNIT/ML VIAL IVP PRN ×2 (04:03)
[2020-11-12] MEDS ORDERED: *HR* Heparin 5,000 UNIT/ML VIAL IVP ONE (04:03)
[2020-11-12] MEDS ORDERED: *HR* Labetalol 20 MG/4 ML SYRINGE IVP PRN (04:04)
[2020-11-12] MEDS: Ipratropium 1 PUFF INHALER IH SCH ×6 (04:24→23:28)
[2020-11-12] MEDS: Heparin 25,000UNIT/250ML 1/2NS 25,000 UNIT/250 ML IV.SOLN IVC SCH (05:44)
[2020-11-12 06:35] LABS: Red Cell Distribution Width 15.8 % (11.5-14.5)
[2020-11-12 06:36] LABS: Basophils % 0.5 %; Hematocrit 32.2 % (35.3-44.9); Hemoglobin 9.2 g/dL (11.5-15.4); Lymphocytes # 0.3 K/mcL (0.6-4.6); Lymphocytes % 8.6 %; Mean Corpuscular HGB Conc 28.6 g/dL (31.6-35.5); Mean Corpuscular Hemoglobin 23.2 pg (28.0-33.3); Mean Corpuscular Volume 81.1 fL (83.0-100.0); Mean Platelet Volume 10.2 fL (9.4-12.4); Monocytes # 0.1 K/mcL (0.0-1.3); Monocytes % 2.6 %; Neutrophils # 3.3 K/mcL (1.6-8.9); Platelet Count 174 K/mcL (140-400); Red Blood Count 3.97 M/mcL (3.82-4.97); Segmented Neutrophils % 87.3 %; White Blood Count 3.8 K/mcL (4.3-11.1)
[2020-11-12 06:48] LABS: Hypochromasia Present (Not Present); Platelet Estimate Normal (Normal); Smudge Cells Present (Not Present)
[2020-11-12] MEDS: Insulin LISPRO 300 UNITS/3 ML VIAL SUBQ SCH ×3 (06:52→17:02)
[2020-11-12] MEDS: DilTIAZem 50 MG/50 ML IV.SOLN IVC SCH ×4 (06:53→20:35)
[2020-11-12 06:55] LABS: Albumin 3.7 g/dL (3.5-5.7); Albumin/Globulin Ratio 1.1 (1.1-2.2); Bilirubin,Total 0.6 mg/dL (0.3-1.0); Calcium 8.6 mg/dL (8.6-10.3); Globulin 3.4 g/dL (2.4-3.5); Potassium 5.2 mEq/L (3.5-5.1); Total Protein 7.1 g/dL (6.4-8.9)
[2020-11-12 07:06] LABS: Heparin anti-factor XA UFH < 0.04 IU/mL (0.30-0.70)
[2020-11-12 07:07] LABS: INR 1.1; Prothrombin Time 12.7 Seconds (9.4-12.1)
[2020-11-12] MEDS ORDERED: Pantoprazole 40 MG VIAL IVP SCH (09:00)
[2020-11-12] MEDS ORDERED: QUEtiapine Fumarate 25 MG TABLET PO ONE (09:39)
[2020-11-12] MEDS ORDERED: hydrOXYzine pamoate 25 MG CAPSULE PO PRN (15:50)
[2020-11-12] MEDS ORDERED: Azithromycin 250 MG TABLET PO ONE (16:45)
[2020-11-12] MEDS: Budesonide/Formoterol 160/4.5 1 PUFF INH IH SCH (19:52)
[2020-11-12 20:36] LABS: Calcium 8.2 mg/dL (8.6-10.3); Potassium 4.5 mEq/L (3.5-5.1)
[2020-11-12 20:49] LABS: Thyroid Stimulating Hormone 0.602 mcIU/mL (0.340-5.600)
[2020-11-13] MEDS: Insulin LISPRO 300 UNITS/3 ML VIAL SUBQ SCH ×4 (00:08→17:27)
[2020-11-13] MEDS: DilTIAZem 50 MG/50 ML IV.SOLN IVC SCH ×3 (03:11→12:48)
[2020-11-13] MEDS: Heparin 25,000UNIT/250ML 1/2NS 25,000 UNIT/250 ML IV.SOLN IVC SCH (03:12)
[2020-11-13] MEDS: Ipratropium 1 PUFF INHALER IH SCH ×6 (04:00→23:20)
[2020-11-13] MEDS ORDERED: Furosemide 40 MG/4 ML VIAL IVP ONE (05:11)
[2020-11-13] MEDS: Levothyroxine 25 MCG TABLET PO SCH (05:37)
[2020-11-13 06:18] LABS: Platelet Count 194 K/mcL (140-400); Red Cell Distribution Width 15.9 % (11.5-14.5)
[2020-11-13 06:19] LABS: Hematocrit 33.7 % (35.3-44.9); Hemoglobin 9.6 g/dL (11.5-15.4); Mean Corpuscular HGB Conc 28.5 g/dL (31.6-35.5); Mean Corpuscular Hemoglobin 22.8 pg (28.0-33.3); Mean Platelet Volume 9.8 fL (9.4-12.4); Red Blood Count 4.21 M/mcL (3.82-4.97); White Blood Count 7.1 K/mcL (4.3-11.1)
[2020-11-13 06:26] LABS: INR 1.2; Prothrombin Time 13.3 Seconds (9.4-12.1)
[2020-11-13 06:47] LABS: % Iron Saturation 9 % (15-50); Alanine Aminotransferase 436 Units/L (7-52); Albumin 3.7 g/dL (3.5-5.7); Albumin/Globulin Ratio 1.1 (1.1-2.2); Alkaline Phosphatase 86 Units/L (34-104); Aspartate Amino Transferase 441 Units/L (13-39); BUN/Creatinine Ratio 24 (6-26); Bilirubin,Direct 0.1 mg/dL (0.0-0.2); Bilirubin,Indirect 0.3 mg/dL (0.0-1.0); Bilirubin,Total 0.4 mg/dL (0.3-1.0); Blood Urea Nitrogen 25 mg/dL (8-23); Calcium 8.8 mg/dL (8.6-10.3); Carbon Dioxide 31 mEq/L (23-29); Chloride 96 mEq/L (98-107); Globulin 3.4 g/dL (2.4-3.5); Glucose 151 mg/dL (70-105); Iron 35 mcg/dL (50-170); Magnesium 2.1 mg/dL (1.6-2.6); Osmolality,Calculated 291 (280-300); Phosphorous 1.9 mg/dL (2.7-4.5); Potassium 4.6 mEq/L (3.5-5.1); Sodium 137 mEq/L (136-145); Total Protein 7.1 g/dL (6.4-8.9); Transferrin 281 mg/dL (203-362); eGFR For African Americans > 60 (> 60); eGFR For Non-African Americans 52 (> 60)
[2020-11-13] MEDS: Levalbuterol 1 PUFF INHALER IH SCH ×5 (07:24→23:20)
[2020-11-13] MEDS: Budesonide/Formoterol 160/4.5 1 PUFF INH IH SCH ×2 (07:24→19:48)
[2020-11-13] MEDS: Aspirin 81 MG TAB.CHEW PO SCH (09:01)
[2020-11-13] MEDS: Azithromycin 250 MG TABLET PO SCH (09:01)
[2020-11-13] MEDS: DilTIAZem 125 MG in 0.9 % Sodium Chloride 50 MG/100 ML IV.SOLN IVC SCH (17:28)
[2020-11-14] MEDS: Insulin LISPRO 300 UNITS/3 ML VIAL SUBQ SCH ×6 (00:30→22:19)
[2020-11-14] MEDS: DilTIAZem 125 MG in 0.9 % Sodium Chloride 50 MG/100 ML IV.SOLN IVC SCH ×2 (01:28→10:28)
[2020-11-14] MEDS: Levalbuterol 1 PUFF INHALER IH SCH ×6 (03:44→23:16)
[2020-11-14] MEDS: Ipratropium 1 PUFF INHALER IH SCH ×6 (03:44→23:16)
[2020-11-14 04:16] LABS: Hemoglobin 9.4 g/dL (11.5-15.4); Mean Corpuscular HGB Conc 29.4 g/dL (31.6-35.5); Mean Corpuscular Hemoglobin 23.3 pg (28.0-33.3); Mean Corpuscular Volume 79.2 fL (83.0-100.0); Mean Platelet Volume 9.5 fL (9.4-12.4); Platelet Count 204 K/mcL (140-400); Red Blood Count 4.04 M/mcL (3.82-4.97); White Blood Count 7.8 K/mcL (4.3-11.1)
[2020-11-14 04:36] LABS: Alanine Aminotransferase 315 Units/L (7-52); Albumin 3.5 g/dL (3.5-5.7); Alkaline Phosphatase 80 Units/L (34-104); Aspartate Amino Transferase 178 Units/L (13-39); BUN/Creatinine Ratio 27 (6-26); Bilirubin,Direct 0.1 mg/dL (0.0-0.2); Bilirubin,Indirect 0.3 mg/dL (0.0-1.0); Bilirubin,Total 0.4 mg/dL (0.3-1.0); Blood Urea Nitrogen 25 mg/dL (8-23); Calcium 8.5 mg/dL (8.6-10.3); Carbon Dioxide 34 mEq/L (23-29); Chloride 97 mEq/L (98-107); Globulin 3.4 g/dL (2.4-3.5); Glucose 139 mg/dL (70-105); Osmolality,Calculated 295 (280-300); Potassium 4.1 mEq/L (3.5-5.1); Sodium 139 mEq/L (136-145); Total Protein 6.9 g/dL (6.4-8.9); eGFR For African Americans > 60 (> 60); eGFR For Non-African Americans 59 (> 60)
[2020-11-14 04:59] LABS: Vitamin B12 587 pg/mL (250-1100)
[2020-11-14] MEDS: Heparin 25,000UNIT/250ML 1/2NS 25,000 UNIT/250 ML IV.SOLN IVC SCH (05:20)
[2020-11-14] MEDS: Levothyroxine 25 MCG TABLET PO SCH (05:42)
[2020-11-14] MEDS: Acetaminophen 325 MG TABLET PO PRN ×2 (05:43→21:46)
[2020-11-14] MEDS: Budesonide/Formoterol 160/4.5 1 PUFF INH IH SCH ×2 (07:33→19:50)
[2020-11-14] MEDS: Azithromycin 250 MG TABLET PO SCH (09:11)
[2020-11-14] MEDS: carvediloL 6.25 MG TABLET PO SCH ×2 (09:11→16:26)
[2020-11-14] MEDS: Aspirin 81 MG TAB.CHEW PO SCH (09:11)
[2020-11-14] MEDS ORDERED: Remdesivir 200 MG in 0.9 % Sodium Chloride 100 ML IVPB ONE (17:00)
[2020-11-14] MEDS ORDERED: Simethicone 80 MG TAB.CHEW PO PRN (18:45)
[2020-11-14] MEDS: *HR* Enoxaparin 120 MG/0.8 ML SYRINGE SQ SCH (23:18)
[2020-11-15] MEDS: Ipratropium 1 PUFF INHALER IH SCH ×6 (03:43→23:48)
[2020-11-15] MEDS: Levalbuterol 1 PUFF INHALER IH SCH ×6 (03:43→23:48)
[2020-11-15 04:47] LABS: Basophils % 0.5 %; Hematocrit 32.5 % (35.3-44.9); Hemoglobin 9.5 g/dL (11.5-15.4); Immature Granulocytes % 3.3 % (0-4); Lymphocytes # 0.8 K/mcL (0.6-4.6); Lymphocytes % 9.5 %; Mean Corpuscular HGB Conc 29.2 g/dL (31.6-35.5); Mean Corpuscular Hemoglobin 22.8 pg (28.0-33.3); Mean Corpuscular Volume 77.9 fL (83.0-100.0); Mean Platelet Volume 9.7 fL (9.4-12.4); Monocytes # 0.6 K/mcL (0.0-1.3); Monocytes % 7.5 %; Neutrophils # 6.6 K/mcL (1.6-8.9); Nucleated Red Blood Cells 0.5 /100 WBC (0); Platelet Count 222 K/mcL (140-400); Red Blood Count 4.17 M/mcL (3.82-4.97); Red Cell Distribution Width 16.1 % (11.5-14.5); Segmented Neutrophils % 79.2 %; White Blood Count 8.4 K/mcL (4.3-11.1)
[2020-11-15 04:54] LABS: INR 1.4; Prothrombin Time 15.5 Seconds (9.4-12.1)
[2020-11-15 05:08] LABS: Alanine Aminotransferase 193 Units/L (7-52); Albumin 3.5 g/dL (3.5-5.7); Albumin/Globulin Ratio 1.1 (1.1-2.2); Alkaline Phosphatase 82 Units/L (34-104); Aspartate Amino Transferase 64 Units/L (13-39); BUN/Creatinine Ratio 32 (6-26); Bilirubin,Total 0.5 mg/dL (0.3-1.0); Blood Urea Nitrogen 31 mg/dL (8-23); Calcium 8.9 mg/dL (8.6-10.3); Carbon Dioxide 32 mEq/L (23-29); Chloride 100 mEq/L (98-107); Globulin 3.2 g/dL (2.4-3.5); Glucose 120 mg/dL (70-105); Osmolality,Calculated 296 (280-300); Potassium 3.9 mEq/L (3.5-5.1); Sodium 139 mEq/L (136-145); Total Protein 6.7 g/dL (6.4-8.9); eGFR For African Americans > 60 (> 60); eGFR For Non-African Americans 57 (> 60)
[2020-11-15] MEDS: Levothyroxine 25 MCG TABLET PO SCH ×2 (06:38→06:47)
[2020-11-15] MEDS: Budesonide/Formoterol 160/4.5 1 PUFF INH IH SCH ×2 (07:44→20:30)
[2020-11-15] MEDS: Aspirin 81 MG TAB.CHEW PO SCH (09:05)
[2020-11-15] MEDS: Lactobacillus 1 EACH CAP.SPRINK PO SCH (09:05)
[2020-11-15] MEDS: Azithromycin 250 MG TABLET PO SCH (09:06)
[2020-11-15] MEDS: carvediloL 6.25 MG TABLET PO SCH ×2 (09:06→17:27)
[2020-11-15] MEDS: *HR* Enoxaparin 120 MG/0.8 ML SYRINGE SQ SCH ×2 (12:11→21:10)
[2020-11-15] MEDS: Insulin LISPRO 300 UNITS/3 ML VIAL SUBQ SCH ×4 (12:12→21:15)
[2020-11-15] MEDS: DilTIAZem CD (24hr) 180 MG CAP.ER.24H PO SCH (12:12)
[2020-11-15] MEDS: Furosemide 20 MG/2 ML VIAL IVP SCH (17:27)
[2020-11-15] MEDS: Remdesivir 100 MG in 0.9 % Sodium Chloride 100 ML IVPB SCH (17:35)
[2020-11-16] MEDS: Levalbuterol 1 PUFF INHALER IH SCH ×6 (04:16→23:13)
[2020-11-16] MEDS: Ipratropium 1 PUFF INHALER IH SCH ×6 (04:17→23:13)
[2020-11-16] MEDS: Levothyroxine 25 MCG TABLET PO SCH (04:53)
[2020-11-16 06:36] LABS: Hematocrit 34.8 % (35.3-44.9); Hemoglobin 10.3 g/dL (11.5-15.4); Mean Corpuscular HGB Conc 29.6 g/dL (31.6-35.5); Mean Corpuscular Hemoglobin 22.8 pg (28.0-33.3); Mean Corpuscular Volume 77.2 fL (83.0-100.0); Mean Platelet Volume 9.2 fL (9.4-12.4); Platelet Count 226 K/mcL (140-400); Red Blood Count 4.51 M/mcL (3.82-4.97); White Blood Count 10.5 K/mcL (4.3-11.1)
[2020-11-16 06:48] LABS: INR 1.5; Prothrombin Time 17.5 Seconds (9.4-12.1)
[2020-11-16 07:09] LABS: Alanine Aminotransferase 128 Units/L (7-52); Albumin 3.5 g/dL (3.5-5.7); Albumin/Globulin Ratio 1.1 (1.1-2.2); Alkaline Phosphatase 82 Units/L (34-104); Aspartate Amino Transferase 38 Units/L (13-39); BUN/Creatinine Ratio 33 (6-26); Bilirubin,Total 0.5 mg/dL (0.3-1.0); Blood Urea Nitrogen 29 mg/dL (8-23); Calcium 8.7 mg/dL (8.6-10.3); Carbon Dioxide 27 mEq/L (23-29); Chloride 100 mEq/L (98-107); Globulin 3.3 g/dL (2.4-3.5); Glucose 130 mg/dL (70-105); Osmolality,Calculated 294 (280-300); Potassium 3.7 mEq/L (3.5-5.1); Sodium 138 mEq/L (136-145); Total Protein 6.8 g/dL (6.4-8.9); eGFR For African Americans > 60 (> 60); eGFR For Non-African Americans > 60 (> 60)
[2020-11-16] MEDS: Budesonide/Formoterol 160/4.5 1 PUFF INH IH SCH ×2 (08:27→20:11)
[2020-11-16] MEDS: Furosemide 20 MG/2 ML VIAL IVP SCH ×2 (10:18→17:20)
[2020-11-16] MEDS: *HR* Enoxaparin 120 MG/0.8 ML SYRINGE SQ SCH ×2 (10:19→20:06)
[2020-11-16] MEDS: Aspirin 81 MG TAB.CHEW PO SCH (10:20)
[2020-11-16] MEDS: DilTIAZem CD (24hr) 180 MG CAP.ER.24H PO SCH (10:21)
[2020-11-16] MEDS: Lactobacillus 1 EACH CAP.SPRINK PO SCH (10:21)
[2020-11-16] MEDS: carvediloL 6.25 MG TABLET PO SCH ×2 (10:39→17:20)
[2020-11-16] MEDS: Insulin LISPRO 300 UNITS/3 ML VIAL SUBQ SCH ×3 (12:16→20:07)
[2020-11-16] MEDS: Remdesivir 100 MG in 0.9 % Sodium Chloride 100 ML IVPB SCH (18:31)
[2020-11-17 03:22] LABS: Hematocrit 34.7 % (35.3-44.9); Hemoglobin 10.6 g/dL (11.5-15.4); Mean Corpuscular HGB Conc 30.5 g/dL (31.6-35.5); Mean Corpuscular Hemoglobin 23.5 pg (28.0-33.3); Mean Corpuscular Volume 76.9 fL (83.0-100.0); Mean Platelet Volume 9.6 fL (9.4-12.4); Platelet Count 229 K/mcL (140-400); Red Blood Count 4.51 M/mcL (3.82-4.97); Red Cell Distribution Width 16.2 % (11.5-14.5)
[2020-11-17 03:33] LABS: INR 1.5; Prothrombin Time 17.2 Seconds (9.4-12.1)
[2020-11-17 03:44] LABS: Alanine Aminotransferase 101 Units/L (7-52); Albumin 3.6 g/dL (3.5-5.7); Albumin/Globulin Ratio 1.1 (1.1-2.2); Alkaline Phosphatase 80 Units/L (34-104); Aspartate Amino Transferase 31 Units/L (13-39); BUN/Creatinine Ratio 31 (6-26); Bilirubin,Total 0.6 mg/dL (0.3-1.0); Blood Urea Nitrogen 29 mg/dL (8-23); Calcium 8.7 mg/dL (8.6-10.3); Carbon Dioxide 29 mEq/L (23-29); Chloride 98 mEq/L (98-107); Globulin 3.3 g/dL (2.4-3.5); Glucose 143 mg/dL (70-105); Osmolality,Calculated 292 (280-300); Sodium 137 mEq/L (136-145); Total Protein 6.9 g/dL (6.4-8.9); eGFR For African Americans > 60 (> 60); eGFR For Non-African Americans > 60 (> 60)
[2020-11-17] MEDS: Levalbuterol 1 PUFF INHALER IH SCH ×6 (04:07→23:35)
[2020-11-17] MEDS: Ipratropium 1 PUFF INHALER IH SCH ×6 (04:08→23:34)
[2020-11-17] MEDS: Levothyroxine 25 MCG TABLET PO SCH (04:54)
[2020-11-17] MEDS: Budesonide/Formoterol 160/4.5 1 PUFF INH IH SCH ×2 (08:00→20:14)
[2020-11-17] MEDS ORDERED: Perflutren Lipid Microsphere 1.3 ML in 0.9 % Sodium Chloride 8.7 ML IVP PRN (08:19)
[2020-11-17] MEDS: Insulin LISPRO 300 UNITS/3 ML VIAL SUBQ SCH ×4 (08:51→20:04)
[2020-11-17] MEDS: Furosemide 20 MG/2 ML VIAL IVP SCH (09:06)
[2020-11-17] MEDS: *HR* Enoxaparin 120 MG/0.8 ML SYRINGE SQ SCH (09:06)
[2020-11-17] MEDS: Aspirin 81 MG TAB.CHEW PO SCH (09:07)
[2020-11-17] MEDS: Lactobacillus 1 EACH CAP.SPRINK PO SCH (09:07)
[2020-11-17] MEDS: DilTIAZem CD (24hr) 180 MG CAP.ER.24H PO SCH (09:07)
[2020-11-17] MEDS: carvediloL 6.25 MG TABLET PO SCH ×2 (09:07→16:23)
[2020-11-17] MEDS ORDERED: Ferumoxytol 510 MG in 0.9 % Sodium Chloride 100 ML IVPB ONE (13:01)
[2020-11-17] MEDS: *HR* Rivaroxaban 10 MG TABLET PO SCH (16:23)
[2020-11-17] MEDS: Furosemide 40 MG TABLET PO SCH (16:23)
[2020-11-18] MEDS: Ipratropium 1 PUFF INHALER IH SCH ×6 (03:46→23:01)
[2020-11-18] MEDS: Levalbuterol 1 PUFF INHALER IH SCH ×6 (03:46→23:01)
[2020-11-18] MEDS: Levothyroxine 25 MCG TABLET PO SCH (05:36)
[2020-11-18] MEDS: Budesonide/Formoterol 160/4.5 1 PUFF INH IH SCH ×2 (07:33→20:00)
[2020-11-18] MEDS: Insulin LISPRO 300 UNITS/3 ML VIAL SUBQ SCH ×4 (08:02→20:48)
[2020-11-18] MEDS: DilTIAZem CD (24hr) 180 MG CAP.ER.24H PO SCH (08:02)
[2020-11-18] MEDS: carvediloL 6.25 MG TABLET PO SCH ×2 (08:03→16:57)
[2020-11-18] MEDS: Lactobacillus 1 EACH CAP.SPRINK PO SCH (08:03)
[2020-11-18] MEDS: Furosemide 40 MG TABLET PO SCH (08:03)
[2020-11-18] MEDS: Aspirin 81 MG TAB.CHEW PO SCH (08:12)
[2020-11-18] MEDS: Azithromycin 250 MG TABLET PO SCH (08:18)
[2020-11-18] MEDS: *HR* Rivaroxaban 10 MG TABLET PO SCH (16:57)
[2020-11-18] MEDS ORDERED: *HR* LORazepam 1 MG TABLET PO ONE (17:00)
[2020-11-19] MEDS: Ipratropium 1 PUFF INHALER IH SCH ×3 (03:17→11:13)
[2020-11-19] MEDS: Levalbuterol 1 PUFF INHALER IH SCH ×3 (03:18→11:13)
[2020-11-19] MEDS: Levothyroxine 25 MCG TABLET PO SCH (05:38)
[2020-11-19 05:54] LABS: Basophils # 0.1 K/mcL (0.0-0.2); Basophils % 0.7 %; Eosinophils % 0.1 %; Hematocrit 35.4 % (35.3-44.9); Hemoglobin 10.4 g/dL (11.5-15.4); Immature Granulocytes % 4.6 % (0-4); Lymphocytes # 1.3 K/mcL (0.6-4.6); Lymphocytes % 9.3 %; Mean Corpuscular HGB Conc 29.4 g/dL (31.6-35.5); Mean Corpuscular Hemoglobin 22.4 pg (28.0-33.3); Mean Corpuscular Volume 76.1 fL (83.0-100.0); Monocytes # 1.1 K/mcL (0.0-1.3); Monocytes % 7.8 %; Neutrophils # 10.5 K/mcL (1.6-8.9); Platelet Count 296 K/mcL (140-400); Red Blood Count 4.65 M/mcL (3.82-4.97); Red Cell Distribution Width 16.4 % (11.5-14.5); Segmented Neutrophils % 77.5 %; White Blood Count 13.5 K/mcL (4.3-11.1)
[2020-11-19 06:16] LABS: BUN/Creatinine Ratio 38 (6-26); Blood Urea Nitrogen 31 mg/dL (8-23); Calcium 8.7 mg/dL (8.6-10.3); Carbon Dioxide 26 mEq/L (23-29); Chloride 98 mEq/L (98-107); Glucose 135 mg/dL (70-105); Osmolality,Calculated 285 (280-300); Potassium 4.2 mEq/L (3.5-5.1); Sodium 133 mEq/L (136-145); eGFR For African Americans > 60 (> 60); eGFR For Non-African Americans > 60 (> 60)
[2020-11-19 06:55] VITALS: BP 172/97
[2020-11-19] MEDS: DilTIAZem CD (24hr) 180 MG CAP.ER.24H PO SCH (07:12)
[2020-11-19] MEDS: Furosemide 40 MG TABLET PO SCH (07:12)
[2020-11-19] MEDS: carvediloL 6.25 MG TABLET PO SCH (07:12)
[2020-11-19] MEDS: Lactobacillus 1 EACH CAP.SPRINK PO SCH (07:13)
[2020-11-19] MEDS: Aspirin 81 MG TAB.CHEW PO SCH (07:13)
[2020-11-19] MEDS: Insulin LISPRO 300 UNITS/3 ML VIAL SUBQ SCH (07:14)
[2020-11-19] MEDS: Budesonide/Formoterol 160/4.5 1 PUFF INH IH SCH (07:26)
== END 2020-11-19 11:47 | DRG 177 ==
LOC: 2NENU → SUATTDRO 01:41
PROVIDERS: ADMIT Internal Medicine; ATTEND Family Medicine

== ENCOUNTER 2021-12-20 02:38 | Inpatient (IN) ==
[2021-12-20] MEDS ORDERED: *HR* Promethazine 25 MG/ML VIAL IM PRN (04:49)
[2021-12-20] MEDS ORDERED: Naloxone 0.4 MG/ML INJ IVP PRN (04:49)
[2021-12-20] MEDS ORDERED: Ondansetron 4 MG/2 ML VIAL IVP PRN (04:49)
[2021-12-20] MEDS: 0.9 % Sodium Chloride 1,000 ML IVC SCH ×2 (05:33→17:15)
[2021-12-20] MEDS ORDERED: *HR* Dextrose 50 % in Water (Syg) 50 ML SYRINGE IVP PRN (06:35)
[2021-12-20] MEDS ORDERED: D5% in Water 1,000 ML IVC PRN (06:35)
[2021-12-20] MEDS ORDERED: Dextrose Gel 15 GM/37.5 ML TUBE PO PRN ×2 (06:35)
[2021-12-20 07:15] LABS: Basophils % 0.1 %; Eosinophils # 0.1 K/mcL (0.0-0.6); Eosinophils % 1.7 %; Hematocrit 32.6 % (35.3-44.9); Hemoglobin 9.5 g/dL (11.5-15.4); Immature Granulocytes % 0.4 % (0-4); Lymphocytes # 0.6 K/mcL (0.6-4.6); Lymphocytes % 7.5 %; Mean Corpuscular HGB Conc 29.1 g/dL (31.6-35.5); Mean Corpuscular Hemoglobin 25.7 pg (28.0-33.3); Mean Corpuscular Volume 88.1 fL (83.0-100.0); Mean Platelet Volume 9.6 fL (9.4-12.4); Monocytes # 0.6 K/mcL (0.0-1.3); Neutrophils # 6.5 K/mcL (1.6-8.9); Platelet Count 194 K/mcL (140-400); Segmented Neutrophils % 82.3 %; White Blood Count 7.9 K/mcL (4.3-11.1)
[2021-12-20 07:21] LABS: INR 1.3; Prothrombin Time 14.2 Seconds (9.4-12.1)
[2021-12-20] MEDS: Insulin LISPRO 300 UNITS/3 ML VIAL SUBQ SCH ×5 (07:38→21:48)
[2021-12-20] MEDS ORDERED: Levothyroxine 25 MCG TABLET PO SCH (08:00)
[2021-12-20 08:12] LABS: Alanine Aminotransferase 15 Units/L (7-52); Albumin 3.6 g/dL (3.5-5.7); Albumin/Globulin Ratio 1.1 (1.1-2.2); Alkaline Phosphatase 101 Units/L (34-104); Aspartate Amino Transferase 17 Units/L (13-39); BUN/Creatinine Ratio 19 (6-26); Bilirubin,Total 0.6 mg/dL (0.3-1.0); Blood Urea Nitrogen 18 mg/dL (8-23); Calcium 9.2 mg/dL (8.6-10.3); Carbon Dioxide 41 mEq/L (23-29); Chloride 95 mEq/L (98-107); Globulin 3.2 g/dL (2.4-3.5); Glucose 176 mg/dL (70-105); Osmolality,Calculated 294 (280-300); Sodium 139 mEq/L (136-145); Total Protein 6.8 g/dL (6.4-8.9); eGFR For African Americans > 60 (> 60); eGFR For Non-African Americans 60 (> 60)
[2021-12-20 09:01] LABS: VBG HCO3 40 mEq/L (21-27); VBG PCO2 76 mmHg (41-51); VBG PH 7.33 pH Units (7.32-7.42); VBG PO2 67 mmHg (25-50)
[2021-12-20 09:48] LABS: Activated Partial Thrombo Time 33.9 Seconds (26.0-36.0)
[2021-12-20] MEDS ORDERED: Lidocaine Jelly 11 ml Syringe MM ONE (10:34)
[2021-12-20] MEDS: Albuterol 2.5 MG/3 ML NEBULIZER IH SCH ×5 (11:25→23:39)
[2021-12-20] MEDS: DilTIAZem CD (24hr) 240 MG CAP.ER.24H PO SCH (13:22)
[2021-12-20] MEDS: carvediloL 6.25 MG TABLET PO SCH ×2 (13:22→17:14)
[2021-12-20] MEDS: predniSONE 20 MG TABLET PO SCH (13:23)
[2021-12-20 13:57] LABS: VBG HCO3 38 mEq/L (21-27); VBG PCO2 70 mmHg (41-51); VBG PH 7.34 pH Units (7.32-7.42); VBG PO2 146 mmHg (25-50)
[2021-12-20] MEDS ORDERED: Morphine Sulfate 2 MG/ML SYRINGE IVP ONE (15:23)
[2021-12-20] MEDS: Levothyroxine Sodium 100 MCG VIAL IVP SCH (15:39)
[2021-12-20] MEDS ORDERED: Chloraseptic Spray 177 ML BOTTLE MM PRN (20:59)
[2021-12-20] MEDS ORDERED: Acetaminophen IV 1,000 MG/100 ML BAG IVPB ONE (21:00)
[2021-12-21 02:22] LABS: Basophils % 0.4 %; Eosinophils # 0.2 K/mcL (0.0-0.6); Eosinophils % 3.3 %; Hematocrit 30.4 % (35.3-44.9); Immature Granulocytes % 0.4 % (0-4); Lymphocytes # 0.8 K/mcL (0.6-4.6); Lymphocytes % 14.8 %; Mean Corpuscular HGB Conc 29.6 g/dL (31.6-35.5); Mean Corpuscular Hemoglobin 26.8 pg (28.0-33.3); Mean Corpuscular Volume 90.5 fL (83.0-100.0); Monocytes # 0.5 K/mcL (0.0-1.3); Monocytes % 9.7 %; Neutrophils # 3.9 K/mcL (1.6-8.9); Platelet Count 181 K/mcL (140-400); Red Blood Count 3.36 M/mcL (3.82-4.97); Red Cell Distribution Width 14.8 % (11.5-14.5); Segmented Neutrophils % 71.4 %; White Blood Count 5.5 K/mcL (4.3-11.1)
[2021-12-21 02:43] LABS: Alanine Aminotransferase 12 Units/L (7-52); Albumin 3.4 g/dL (3.5-5.7); Albumin/Globulin Ratio 1.2 (1.1-2.2); Alkaline Phosphatase 87 Units/L (34-104); Aspartate Amino Transferase 13 Units/L (13-39); BUN/Creatinine Ratio 19 (6-26); Bilirubin,Total 0.5 mg/dL (0.3-1.0); Blood Urea Nitrogen 15 mg/dL (8-23); Calcium 8.7 mg/dL (8.6-10.3); Carbon Dioxide 36 mEq/L (23-29); Chloride 99 mEq/L (98-107); Globulin 2.9 g/dL (2.4-3.5); Glucose 129 mg/dL (70-105); Osmolality,Calculated 293 (280-300); Potassium 3.8 mEq/L (3.5-5.1); Sodium 140 mEq/L (136-145); Total Protein 6.3 g/dL (6.4-8.9); eGFR For African Americans > 60 (> 60); eGFR For Non-African Americans > 60 (> 60)
[2021-12-21] MEDS: *HR* Metoprolol 5 MG/5 ML VIAL IVP PRN ×4 (03:04→20:46)
[2021-12-21] MEDS: Albuterol 2.5 MG/3 ML NEBULIZER IH SCH ×3 (03:52→11:02)
[2021-12-21] MEDS: Insulin LISPRO 300 UNITS/3 ML VIAL SUBQ SCH ×4 (07:37→22:19)
[2021-12-21] MEDS: Levothyroxine Sodium 100 MCG VIAL IVP SCH (08:03)
[2021-12-21] MEDS: DilTIAZem CD (24hr) 240 MG CAP.ER.24H PO SCH (08:04)
[2021-12-21] MEDS: predniSONE 20 MG TABLET PO SCH (08:04)
[2021-12-21] MEDS: carvediloL 6.25 MG TABLET PO SCH (08:04)
[2021-12-21] MEDS ORDERED: Albuterol 2.5 MG/3 ML NEBULIZER IH PRN (14:02)
[2021-12-21] MEDS: carvediloL 25 MG TABLET PO SCH ×3 (16:55→17:27)
[2021-12-21] MEDS: Albuterol 2.5 MG/3 ML NEBULIZER IH PRN (18:14)
[2021-12-21] MEDS: Loratadine 10 MG TABLET PO SCH (22:33)
[2021-12-22] MEDS: Albuterol 2.5 MG/3 ML NEBULIZER IH PRN (00:34)
[2021-12-22 02:41] LABS: Basophils % 0.6 %; Eosinophils # 0.1 K/mcL (0.0-0.6); Eosinophils % 2.4 %; Hematocrit 30.4 % (35.3-44.9); Hemoglobin 9.8 g/dL (11.5-15.4); Immature Granulocytes % 0.4 % (0-4); Lymphocytes # 0.8 K/mcL (0.6-4.6); Lymphocytes % 15.1 %; Mean Corpuscular HGB Conc 32.2 g/dL (31.6-35.5); Mean Corpuscular Hemoglobin 28.8 pg (28.0-33.3); Mean Corpuscular Volume 89.4 fL (83.0-100.0); Mean Platelet Volume 9.8 fL (9.4-12.4); Monocytes # 0.6 K/mcL (0.0-1.3); Monocytes % 11.8 %; Neutrophils # 3.5 K/mcL (1.6-8.9); Platelet Count 192 K/mcL (140-400); Red Cell Distribution Width 14.7 % (11.5-14.5); Segmented Neutrophils % 69.7 %
[2021-12-22 02:47] LABS: BUN/Creatinine Ratio 21 (6-26); Blood Urea Nitrogen 16 mg/dL (8-23); Carbon Dioxide 33 mEq/L (23-29); Chloride 102 mEq/L (98-107); Potassium 3.7 mEq/L (3.5-5.1); Sodium 139 mEq/L (136-145)
[2021-12-22 02:48] LABS: Alanine Aminotransferase 10 Units/L (7-52); Albumin 3.4 g/dL (3.5-5.7); Alkaline Phosphatase 84 Units/L (34-104); Aspartate Amino Transferase 12 Units/L (13-39); Bilirubin,Total 0.4 mg/dL (0.3-1.0); Calcium 9.2 mg/dL (8.6-10.3); Globulin 3.4 g/dL (2.4-3.5); Glucose 140 mg/dL (70-105); Osmolality,Calculated 291 (280-300); Total Protein 6.8 g/dL (6.4-8.9); eGFR For African Americans > 60 (> 60); eGFR For Non-African Americans > 60 (> 60)
[2021-12-22] MEDS: carvediloL 25 MG TABLET PO SCH ×2 (08:39→16:14)
[2021-12-22] MEDS: DilTIAZem CD (24hr) 180 MG CAP.ER.24H PO SCH (08:39)
[2021-12-22] MEDS: Loratadine 10 MG TABLET PO SCH (08:39)
[2021-12-22] MEDS: predniSONE 20 MG TABLET PO SCH (08:40)
[2021-12-22] MEDS: Insulin LISPRO 300 UNITS/3 ML VIAL SUBQ SCH ×4 (08:50→21:57)
[2021-12-22] MEDS: Levothyroxine 25 MCG TABLET PO SCH (13:03)
[2021-12-22] MEDS ORDERED: Simethicone 80 MG TAB.CHEW PO PRN (14:27)
[2021-12-22] MEDS: *HR* Rivaroxaban 10 MG TABLET PO SCH (16:13)
[2021-12-22] MEDS: Budesonide/Formoterol 160/4.5 1 PUFF INH IH SCH (20:41)
[2021-12-23] MEDS: Nystatin POWDER 30 GM BOTTLE TP SCH ×3 (00:29→18:53)
[2021-12-23] MEDS: Levothyroxine 25 MCG TABLET PO SCH (05:39)
[2021-12-23] MEDS: *HR* Metoprolol 5 MG/5 ML VIAL IVP PRN (05:40)
[2021-12-23] MEDS: Albuterol 2.5 MG/3 ML NEBULIZER IH PRN (06:04)
[2021-12-23] MEDS: Budesonide/Formoterol 160/4.5 1 PUFF INH IH SCH (07:31)
[2021-12-23] MEDS: Loratadine 10 MG TABLET PO SCH (08:30)
[2021-12-23] MEDS: carvediloL 25 MG TABLET PO SCH ×2 (08:31→18:53)
[2021-12-23] MEDS: DilTIAZem CD (24hr) 180 MG CAP.ER.24H PO SCH (08:31)
[2021-12-23] MEDS: Insulin LISPRO 300 UNITS/3 ML VIAL SUBQ SCH ×3 (08:37→18:53)
[2021-12-23] MEDS ORDERED: predniSONE 20 MG TABLET PO SCH (09:00)
[2021-12-23] MEDS ORDERED: Aspirin 81 MG TAB.CHEW PO SCH (09:00)
[2021-12-23] MEDS ORDERED: Furosemide 40 MG TABLET PO SCH (09:00)
[2021-12-23] MEDS ORDERED: Acetaminophen 325 MG TABLET PO PRN (14:28)
[2021-12-23 16:09] LABS: Influenza A PCR Negative (Negative); Influenza B PCR Negative (Negative); Resp. Syncytial Virus PCR Negative (Negative)
[2021-12-23 16:12] LABS: SARS-CoV-2 by PCR (In House) Negative (Negative)
[2021-12-23 16:15] VITALS: BP 166/84; PULSE 113; TEMP 98.9; O2SAT 94
[2021-12-23] MEDS: *HR* Rivaroxaban 10 MG TABLET PO SCH (18:53)
[2021-12-24] MEDS ORDERED: DilTIAZem CD (24hr) 240 MG CAP.ER.24H PO SCH (09:00)
== END 2021-12-23 19:50 | disposition other institution (70) | DRG 388 ==
LOC: 3ANU → SUATTDRO 04:32
PROVIDERS: ADMIT Internal Medicine; ATTEND Internal Medicine

== ENCOUNTER 2022-03-05 14:35 | Inpatient (IN) ==
[2022-03-05] MEDS ORDERED: Ondansetron 4 MG/2 ML VIAL IVP PRN (17:30)
[2022-03-05] MEDS ORDERED: Acetaminophen 325 MG TABLET PO PRN (17:30)
[2022-03-05] MEDS ORDERED: Naloxone 0.4 MG/ML INJ IVP PRN (17:30)
[2022-03-05] MEDS ORDERED: Dextrose Gel 15 GM/37.5 ML TUBE PO PRN ×2 (18:16)
[2022-03-05] MEDS ORDERED: *HR* Dextrose 50 % in Water (Syg) 50 ML SYRINGE IVP PRN (18:16)
[2022-03-05] MEDS ORDERED: D5% in Water 1,000 ML IVC PRN (18:16)
[2022-03-05] MEDS ORDERED: Nitroglycerin 0.4 MG TAB.SUBL SL PRN (18:19)
[2022-03-05 18:46] LABS: Activated Partial Thrombo Time 35.5 Seconds (26.0-36.0)
[2022-03-05 18:50] LABS: INR 1.6; Prothrombin Time 17.5 Seconds (9.4-12.1)
[2022-03-05 18:51] LABS: Potassium 4.8 mEq/L (3.5-5.1)
[2022-03-05 18:58] LABS: Troponin I 0.2 ng/mL (< 0.04)
[2022-03-05] MEDS ORDERED: *HR* Metoprolol 5 MG/5 ML VIAL IVP ONE ×2 (19:02→19:07)
[2022-03-05] MEDS: 0.9 % Sodium Chloride 1,000 ML IVC SCH (19:11)
[2022-03-05] MEDS ORDERED: *HR* Heparin 5,000 UNIT/ML VIAL IVP PRN (19:51)
[2022-03-05] MEDS ORDERED: Heparin 25,000UNIT/250ML 1/2NS 25,000 UNIT/250 ML IV.SOLN IVC SCH (20:00)
[2022-03-05] MEDS: DilTIAZem 50 MG/50 ML IV.SOLN IVC SCH (21:01)
[2022-03-05] MEDS: Heparin 25,000UNIT/250ML 1/2NS 25,000 UNIT/250 ML IV.SOLN IVC SCH (21:08)
[2022-03-05 21:35] LABS: Bilirubin,Urine Negative (Negative); Blood,Urine Large (Negative); Clarity,Urine Clear (Clear); Color,Urine Yellow (Yellow); Glucose,Urine (UA) 100 mg/dL (Normal); Hyaline Casts,Urine Few per lpf (None Seen); Ketones,Urine 20 mg/dL (Negative); Leukocyte Esterase,Urine Moderate (Negative); Nitrite,Urine Negative (Negative); PH,Urine 5.5 pH Units (5.0-8.0); Protein,Urine 50 mg/dL (Neg-Trace); RBC,Urine 50-100 per hpf (0-3); Specific Gravity,Urine 1.025 (1.010-1.025); Squamous Epithelial Cell,Urine Few per hpf (None-Few); Urobilinogen,Urine Normal (Normal); WBC,Urine 30-50 per hpf (0-3)
[2022-03-05] MEDS: Ipratropium/Albuterol Neb 3 ML IH SCH (22:22)
[2022-03-05] MEDS: Insulin LISPRO 300 UNITS/3 ML VIAL SUBQ SCH (22:38)
[2022-03-05] MEDS: Nystatin POWDER 30 GM BOTTLE TP SCH (22:38)
[2022-03-05] MEDS: DilTIAZem CD (24hr) 180 MG CAP.ER.24H PO SCH (22:39)
[2022-03-05 23:56] LABS: ABG Base Excess 12 mEq/L (-2 to 3); ABG HCO3 40 mEq/L (21-27); ABG Oxygen Saturation 97 % (95-98); ABG PCO2 72 mmHg (35-45); ABG PH 7.36 pH Units (7.32-7.45); ABG PO2 103 mmHg (85-104); ABG TCO2 42 mEq/L (20-26); Blood Gas Modality BiLevel
[2022-03-06 01:14] LABS: Basophils % 0.2 %; Immature Granulocytes % 0.5 % (0-4)
[2022-03-06 01:16] LABS: Hematocrit 26.4 % (35.3-44.9); Hemoglobin 7.7 g/dL (11.5-15.4); Lymphocytes # 0.8 K/mcL (0.6-4.6); Lymphocytes % 12.6 %; Mean Corpuscular HGB Conc 29.2 g/dL (31.6-35.5); Mean Corpuscular Hemoglobin 24.4 pg (28.0-33.3); Mean Corpuscular Volume 83.5 fL (83.0-100.0); Mean Platelet Volume 10.2 fL (9.4-12.4); Monocytes # 0.2 K/mcL (0.0-1.3); Monocytes % 3.2 %; Neutrophils # 5.3 K/mcL (1.6-8.9); Platelet Count 183 K/mcL (140-400); Red Blood Count 3.16 M/mcL (3.82-4.97); Red Cell Distribution Width 14.8 % (11.5-14.5); Segmented Neutrophils % 83.5 %; White Blood Count 6.3 K/mcL (4.3-11.1)
[2022-03-06 01:27] LABS: Albumin 3.6 g/dL (3.5-5.7); Albumin/Globulin Ratio 1.2 (1.1-2.2); Bilirubin,Total 0.3 mg/dL (0.3-1.0); Globulin 2.9 g/dL (2.4-3.5); Potassium 4.8 mEq/L (3.5-5.1); Total Protein 6.5 g/dL (6.4-8.9)
[2022-03-06] MEDS: DilTIAZem 50 MG/50 ML IV.SOLN IVC SCH ×2 (02:30→05:05)
[2022-03-06] MEDS ORDERED: *HR* Metoprolol 5 MG/5 ML VIAL IVP ONE ×2 (02:38→02:40)
[2022-03-06 02:43] LABS: ABG Base Excess 10 mEq/L (-2 to 3); ABG HCO3 38 mEq/L (21-27); ABG Oxygen Saturation 98 % (95-98); ABG PCO2 66 mmHg (35-45); ABG PH 7.37 pH Units (7.32-7.45); ABG PO2 119 mmHg (85-104); ABG TCO2 40 mEq/L (20-26)
[2022-03-06] MEDS: Ipratropium/Albuterol Neb 3 ML IH SCH ×4 (03:50→20:18)
[2022-03-06] MEDS: 0.9 % Sodium Chloride 1,000 ML IVC SCH (04:16)
[2022-03-06 05:37] LABS: Heparin anti-factor XA UFH 0.98 IU/mL (0.30-0.70)
[2022-03-06 06:56] LABS: Activated Partial Thrombo Time 141.2 Seconds (26.0-36.0)
[2022-03-06] MEDS: cefTRIAXone 1,000 MG in 0.9 % Sodium Chloride 10 ML IVP SCH (08:21)
[2022-03-06] MEDS: Aspirin 81 MG TAB.CHEW PO SCH (08:22)
[2022-03-06] MEDS: DilTIAZem CD (24hr) 180 MG CAP.ER.24H PO SCH (08:22)
[2022-03-06] MEDS: Nystatin POWDER 30 GM BOTTLE TP SCH ×3 (08:22→21:16)
[2022-03-06] MEDS: Insulin LISPRO 300 UNITS/3 ML VIAL SUBQ SCH ×4 (08:30→21:16)
[2022-03-06] MEDS ORDERED: 0.9 % Sodium Chloride 1,000 ML IVC SCH (09:02)
[2022-03-06] MEDS ORDERED: DilTIAZem CD (24hr) 180 MG CAP.ER.24H PO ONE (10:01)
[2022-03-06] MEDS ORDERED: *HR* HYDROcodone/Acet 5/325 mg TABLET PO ONE (11:20)
[2022-03-06] MEDS ORDERED: DilTIAZem SR (12hr) 60 MG CAP.ER.12H PO ONE (11:23)
[2022-03-06] MEDS: Heparin 25,000UNIT/250ML 1/2NS 25,000 UNIT/250 ML IV.SOLN IVC SCH (14:41)
[2022-03-06 15:04] LABS: Folate 18.7 ng/mL (3.0-16.0)
[2022-03-06] MEDS: Pantoprazole 40 MG VIAL IVP SCH (16:00)
[2022-03-06 16:02] LABS: Ferritin 36 ng/mL (10-120); Iron < 10 mcg/dL (50-170); Transferrin 350 mg/dL (203-362)
[2022-03-06] MEDS ORDERED: SODIUM CHLORIDE/NAHCO3/KCL/PEG 4,000 ML SOLN.RECON PO ONE (17:00)
[2022-03-06] MEDS ORDERED: *HR* Rivaroxaban 15 MG TABLET PO SCH (17:00)
[2022-03-07] MEDS: Ipratropium/Albuterol Neb 3 ML IH SCH ×2 (04:04→10:19)
[2022-03-07] MEDS: *HR* Metoprolol 5 MG/5 ML VIAL IVP PRN (06:21)
[2022-03-07] MEDS: Insulin LISPRO 300 UNITS/3 ML VIAL SUBQ SCH ×4 (06:22→20:26)
[2022-03-07 08:08] LABS: Basophils % 0.3 %; Eosinophils # 0.1 K/mcL (0.0-0.6); Eosinophils % 1.7 %; Hematocrit 28.5 % (35.3-44.9); Hemoglobin 8.1 g/dL (11.5-15.4); Immature Granulocytes % 0.8 % (0-4); Lymphocytes # 1.2 K/mcL (0.6-4.6); Lymphocytes % 15.6 %; Mean Corpuscular HGB Conc 28.4 g/dL (31.6-35.5); Mean Corpuscular Hemoglobin 23.8 pg (28.0-33.3); Mean Corpuscular Volume 83.6 fL (83.0-100.0); Mean Platelet Volume 10.3 fL (9.4-12.4); Monocytes # 0.7 K/mcL (0.0-1.3); Monocytes % 9.1 %; Neutrophils # 5.5 K/mcL (1.6-8.9); Platelet Count 185 K/mcL (140-400); Red Blood Count 3.41 M/mcL (3.82-4.97); Red Cell Distribution Width 15.1 % (11.5-14.5); Segmented Neutrophils % 72.5 %; White Blood Count 7.6 K/mcL (4.3-11.1)
[2022-03-07 08:26] LABS: Calcium 8.8 mg/dL (8.6-10.3)
[2022-03-07] MEDS: DilTIAZem CD (24hr) 180 MG CAP.ER.24H PO SCH (09:05)
[2022-03-07] MEDS: Pantoprazole 40 MG VIAL IVP SCH (09:05)
[2022-03-07] MEDS: Aspirin 81 MG TAB.CHEW PO SCH (09:05)
[2022-03-07] MEDS: cefTRIAXone 1,000 MG in 0.9 % Sodium Chloride 10 ML IVP SCH (09:29)
[2022-03-07] MEDS: Nystatin POWDER 30 GM BOTTLE TP SCH ×3 (09:30→20:26)
[2022-03-07] MEDS: Heparin 25,000UNIT/250ML 1/2NS 25,000 UNIT/250 ML IV.SOLN IVC SCH (10:33)
[2022-03-07] MEDS: Levalbuterol Neb 1.25 MG/3 ML IH SCH ×2 (15:34→23:04)
[2022-03-07] MEDS ORDERED: NON-FORMULARY MEDICATION 1 EACH EACH (Esomeprazole Magnesium [Nexium] 40 MG Capsule.Dr) PO SCH (21:00)
[2022-03-07] MEDS: Budesonide/Formoterol 160/4.5 1 PUFF INH IH SCH (23:05)
[2022-03-08 02:14] LABS: Basophils % 0.4 %; Eosinophils # 0.2 K/mcL (0.0-0.6); Eosinophils % 2.7 %; Hematocrit 28.9 % (35.3-44.9); Hemoglobin 8.1 g/dL (11.5-15.4); Immature Granulocytes % 0.4 % (0-4); Lymphocytes # 1.1 K/mcL (0.6-4.6); Lymphocytes % 19.9 %; Mean Corpuscular Hemoglobin 23.4 pg (28.0-33.3); Mean Corpuscular Volume 83.5 fL (83.0-100.0); Mean Platelet Volume 10.3 fL (9.4-12.4); Monocytes % 11.5 %; Neutrophils # 3.7 K/mcL (1.6-8.9); Platelet Count 198 K/mcL (140-400); Red Blood Count 3.46 M/mcL (3.82-4.97); Red Cell Distribution Width 14.9 % (11.5-14.5); Segmented Neutrophils % 65.1 %; White Blood Count 5.6 K/mcL (4.3-11.1)
[2022-03-08 02:15] LABS: Monocytes # 0.6 K/mcL (0.0-1.3)
[2022-03-08 02:28] LABS: Magnesium 1.5 mg/dL (1.6-2.6)
[2022-03-08] MEDS: Heparin 25,000UNIT/250ML 1/2NS 25,000 UNIT/250 ML IV.SOLN IVC SCH ×2 (03:37→17:15)
[2022-03-08] MEDS: Levalbuterol Neb 1.25 MG/3 ML IH SCH ×4 (04:10→21:52)
[2022-03-08] MEDS: Levothyroxine 25 MCG TABLET PO SCH (05:59)
[2022-03-08] MEDS ORDERED: *HR* LORazepam 2 MG/ML VIAL IVP ONE (06:42)
[2022-03-08] MEDS ORDERED: *HR* Labetalol 20 MG/4 ML SYRINGE IVP ONE (06:43)
[2022-03-08] MEDS ORDERED: *HR* Metoprolol 5 MG/5 ML VIAL IVP ONE (06:48)
[2022-03-08 07:12] LABS: ABG Base Excess 8 mEq/L (-2 to 3); ABG HCO3 37 mEq/L (21-27); ABG Oxygen Saturation 100 % (95-98); ABG PCO2 77 mmHg (35-45); ABG PH 7.29 pH Units (7.32-7.45); ABG PO2 331 mmHg (85-104); ABG TCO2 39 mEq/L (20-26)
[2022-03-08] MEDS: Nystatin POWDER 30 GM BOTTLE TP SCH ×3 (08:07→20:38)
[2022-03-08] MEDS: Pantoprazole 40 MG VIAL IVP SCH (08:10)
[2022-03-08] MEDS: cefTRIAXone 1,000 MG in 0.9 % Sodium Chloride 10 ML IVP SCH (08:14)
[2022-03-08] MEDS: DilTIAZem CD (24hr) 180 MG CAP.ER.24H PO SCH (08:15)
[2022-03-08] MEDS: Loratadine 10 MG TABLET PO SCH (08:20)
[2022-03-08] MEDS: Aspirin 81 MG TAB.CHEW PO SCH (08:20)
[2022-03-08] MEDS ORDERED: methylPREDNISolone 125 MG/2 ML VIAL IVP ONE (08:26)
[2022-03-08] MEDS: Insulin LISPRO 300 UNITS/3 ML VIAL SUBQ SCH ×4 (08:33→20:38)
[2022-03-08] MEDS ORDERED: Furosemide 40 MG TABLET PO SCH (09:00)
[2022-03-08] MEDS: Budesonide/Formoterol 160/4.5 1 PUFF INH IH SCH ×2 (11:00→21:53)
[2022-03-08] MEDS: Ipratropium Neb 0.5 MG NEBULIZER IH SCH ×3 (11:00→21:52)
[2022-03-08 11:51] LABS: ABG Base Excess 10 mEq/L (-2 to 3); ABG HCO3 36 mEq/L (21-27); ABG Oxygen Saturation 97 % (95-98); ABG PCO2 56 mmHg (35-45); ABG PH 7.41 pH Units (7.32-7.45); ABG PO2 96 mmHg (85-104); ABG TCO2 37 mEq/L (20-26)
[2022-03-08] MEDS ORDERED: Iopamidol - 370 500 ML MLS IVP ONE (12:39)
[2022-03-08] MEDS: hydrOXYzine pamoate 25 MG CAPSULE PO PRN (16:13)
[2022-03-08] MEDS: Simethicone 80 MG TAB.CHEW PO PRN (16:13)
[2022-03-08] MEDS: Furosemide 40 MG/4 ML VIAL IVP SCH (17:43)
[2022-03-08] MEDS: *HR* Heparin 5,000 UNIT/ML VIAL IVP PRN (23:21)
[2022-03-09] MEDS: Ipratropium Neb 0.5 MG NEBULIZER IH SCH ×4 (04:04→22:48)
[2022-03-09] MEDS: Levalbuterol Neb 1.25 MG/3 ML IH SCH ×4 (04:04→22:48)
[2022-03-09 05:14] LABS: Basophils % 0.2 %; Hematocrit 27.7 % (35.3-44.9); Hemoglobin 7.9 g/dL (11.5-15.4); Immature Granulocytes % 0.7 % (0-4); Lymphocytes # 0.6 K/mcL (0.6-4.6); Lymphocytes % 9.8 %; Mean Corpuscular HGB Conc 28.5 g/dL (31.6-35.5); Mean Corpuscular Hemoglobin 23.7 pg (28.0-33.3); Mean Corpuscular Volume 82.9 fL (83.0-100.0); Monocytes # 0.4 K/mcL (0.0-1.3); Monocytes % 6.9 %; Platelet Count 202 K/mcL (140-400); Red Blood Count 3.34 M/mcL (3.82-4.97); Red Cell Distribution Width 14.8 % (11.5-14.5); Segmented Neutrophils % 82.4 %; White Blood Count 6.1 K/mcL (4.3-11.1)
[2022-03-09] MEDS: Levothyroxine 25 MCG TABLET PO SCH (06:14)
[2022-03-09 10:06] LABS: Albumin 3.4 g/dL (3.5-5.7); Albumin/Globulin Ratio 1.2 (1.1-2.2); Bilirubin,Direct 0.1 mg/dL (0.0-0.2); Bilirubin,Indirect 0.3 mg/dL (0.0-1.0); Bilirubin,Total 0.4 mg/dL (0.3-1.0); Globulin 2.9 g/dL (2.4-3.5); Total Protein 6.3 g/dL (6.4-8.9)
[2022-03-09] MEDS: Budesonide/Formoterol 160/4.5 1 PUFF INH IH SCH ×2 (10:10→22:48)
[2022-03-09] MEDS: Furosemide 40 MG/4 ML VIAL IVP SCH ×2 (10:39→17:29)
[2022-03-09] MEDS: Loratadine 10 MG TABLET PO SCH (10:41)
[2022-03-09] MEDS: DilTIAZem CD (24hr) 180 MG CAP.ER.24H PO SCH (10:41)
[2022-03-09] MEDS: Aspirin 81 MG TAB.CHEW PO SCH (10:42)
[2022-03-09] MEDS: Pantoprazole 40 MG VIAL IVP SCH (10:47)
[2022-03-09] MEDS: Nystatin POWDER 30 GM BOTTLE TP SCH ×3 (10:51→20:54)
[2022-03-09] MEDS: Heparin 25,000UNIT/250ML 1/2NS 25,000 UNIT/250 ML IV.SOLN IVC SCH (10:52)
[2022-03-09] MEDS: Insulin LISPRO 300 UNITS/3 ML VIAL SUBQ SCH ×4 (10:53→20:53)
[2022-03-09] MEDS: MethylPREDNISolone 40 MG/ML VIAL IVP SCH ×2 (11:02→17:29)
[2022-03-09] MEDS: hydrOXYzine pamoate 25 MG CAPSULE PO PRN ×2 (12:43→17:29)
[2022-03-09] MEDS: carvediloL 6.25 MG TABLET PO SCH ×3 (12:43→17:33)
[2022-03-09] MEDS: *HR* Heparin 5,000 UNIT/ML VIAL IVP PRN (12:53)
[2022-03-09 17:02] LABS: RBC,Pleural Fluid 4000 RBC/mcL
[2022-03-09] MEDS: Piperacillin/Tazobactam 3.375 GM in 0.9 % Sodium Chloride Mini Bag 100 ML IVPB SCH ×2 (17:26→23:14)
[2022-03-09 17:30] LABS: Total Protein,Pleural Fluid 2.1 g/dL
[2022-03-09] MEDS ORDERED: cloNIDine HCL 0.1 MG TABLET PO ONE (18:11)
[2022-03-09 18:21] LABS: Appearance of Pleural Fl Hazy (Clear); Basophils,Pleural Fluid 0 %; Eosinophils,Pleural Fluid 0 %
[2022-03-09] MEDS: *HR* Metoprolol 5 MG/5 ML VIAL IVP PRN (23:18)
[2022-03-10] MEDS: Heparin 25,000UNIT/250ML 1/2NS 25,000 UNIT/250 ML IV.SOLN IVC SCH ×3 (03:16→21:53)
[2022-03-10] MEDS: Ipratropium Neb 0.5 MG NEBULIZER IH SCH ×4 (03:53→22:47)
[2022-03-10] MEDS: Levalbuterol Neb 1.25 MG/3 ML IH SCH ×4 (03:55→22:47)
[2022-03-10] MEDS: Levothyroxine 25 MCG TABLET PO SCH (04:57)
[2022-03-10] MEDS: MethylPREDNISolone 40 MG/ML VIAL IVP SCH ×2 (04:57→18:01)
[2022-03-10] MEDS: Piperacillin/Tazobactam 3.375 GM in 0.9 % Sodium Chloride Mini Bag 100 ML IVPB SCH ×3 (07:41→23:09)
[2022-03-10] MEDS: hydrOXYzine pamoate 25 MG CAPSULE PO PRN ×3 (07:42→21:52)
[2022-03-10] MEDS: Aspirin 81 MG TAB.CHEW PO SCH (07:42)
[2022-03-10] MEDS: Furosemide 40 MG/4 ML VIAL IVP SCH ×2 (07:42→16:18)
[2022-03-10] MEDS: Loratadine 10 MG TABLET PO SCH (07:42)
[2022-03-10] MEDS: DilTIAZem CD (24hr) 180 MG CAP.ER.24H PO SCH (07:42)
[2022-03-10] MEDS: Pantoprazole 40 MG VIAL IVP SCH (07:43)
[2022-03-10] MEDS: carvediloL 6.25 MG TABLET PO SCH ×3 (07:43→16:18)
[2022-03-10] MEDS: Nystatin POWDER 30 GM BOTTLE TP SCH ×3 (07:43→21:54)
[2022-03-10] MEDS: Insulin LISPRO 300 UNITS/3 ML VIAL SUBQ SCH ×4 (07:44→21:57)
[2022-03-10] MEDS: Budesonide/Formoterol 160/4.5 1 PUFF INH IH SCH ×2 (10:17→22:48)
[2022-03-10 11:00] LABS: Basophils % 0.1 %; Hematocrit 28.5 % (35.3-44.9); Hemoglobin 8.3 g/dL (11.5-15.4); Lymphocytes # 0.4 K/mcL (0.6-4.6); Lymphocytes % 5.9 %; Mean Corpuscular HGB Conc 29.1 g/dL (31.6-35.5); Mean Corpuscular Hemoglobin 23.8 pg (28.0-33.3); Mean Corpuscular Volume 81.7 fL (83.0-100.0); Monocytes # 0.3 K/mcL (0.0-1.3); Monocytes % 3.7 %; Neutrophils # 6.3 K/mcL (1.6-8.9); Platelet Count 211 K/mcL (140-400); Red Blood Count 3.49 M/mcL (3.82-4.97); Segmented Neutrophils % 89.3 %; White Blood Count 7.1 K/mcL (4.3-11.1)
[2022-03-10 11:08] LABS: INR 1.3; Prothrombin Time 14.4 Seconds (9.4-12.1)
[2022-03-10 11:22] LABS: Calcium 8.6 mg/dL (8.6-10.3); Potassium 3.3 mEq/L (3.5-5.1)
[2022-03-10] MEDS: Simethicone 80 MG TAB.CHEW PO PRN ×2 (15:00→21:54)
[2022-03-10] MEDS: *HR* Metoprolol 5 MG/5 ML VIAL IVP PRN (23:12)
[2022-03-11 01:42] LABS: Hematocrit 27.2 % (35.3-44.9); Immature Granulocytes % 0.5 % (0-4); Lymphocytes # 0.4 K/mcL (0.6-4.6); Lymphocytes % 4.6 %; Mean Corpuscular HGB Conc 29.4 g/dL (31.6-35.5); Mean Corpuscular Hemoglobin 23.8 pg (28.0-33.3); Mean Platelet Volume 9.8 fL (9.4-12.4); Monocytes # 0.3 K/mcL (0.0-1.3); Monocytes % 3.4 %; Neutrophils # 8.9 K/mcL (1.6-8.9); Platelet Count 207 K/mcL (140-400); Red Blood Count 3.36 M/mcL (3.82-4.97); Red Cell Distribution Width 14.7 % (11.5-14.5); Segmented Neutrophils % 91.5 %; White Blood Count 9.7 K/mcL (4.3-11.1)
[2022-03-11 02:01] LABS: Calcium 8.5 mg/dL (8.6-10.3); Potassium 3.7 mEq/L (3.5-5.1)
[2022-03-11] MEDS: Ipratropium Neb 0.5 MG NEBULIZER IH SCH ×4 (04:37→22:44)
[2022-03-11] MEDS: Levalbuterol Neb 1.25 MG/3 ML IH SCH ×4 (04:37→22:44)
[2022-03-11] MEDS: Levothyroxine 25 MCG TABLET PO SCH (06:08)
[2022-03-11] MEDS: MethylPREDNISolone 40 MG/ML VIAL IVP SCH (06:08)
[2022-03-11] MEDS: Piperacillin/Tazobactam 3.375 GM in 0.9 % Sodium Chloride Mini Bag 100 ML IVPB SCH ×3 (08:13→23:07)
[2022-03-11] MEDS: predniSONE 20 MG TABLET PO SCH (08:15)
[2022-03-11] MEDS: Aspirin 81 MG TAB.CHEW PO SCH (08:15)
[2022-03-11] MEDS: DilTIAZem CD (24hr) 180 MG CAP.ER.24H PO SCH (08:17)
[2022-03-11] MEDS: Loratadine 10 MG TABLET PO SCH (08:17)
[2022-03-11] MEDS: carvediloL 6.25 MG TABLET PO SCH ×3 (08:18→17:29)
[2022-03-11] MEDS: hydrOXYzine pamoate 25 MG CAPSULE PO PRN ×3 (08:18→20:45)
[2022-03-11] MEDS: Pantoprazole 40 MG VIAL IVP SCH (08:19)
[2022-03-11] MEDS: Furosemide 40 MG/4 ML VIAL IVP SCH (08:19)
[2022-03-11] MEDS: Nystatin POWDER 30 GM BOTTLE TP SCH ×3 (08:19→20:46)
[2022-03-11] MEDS ORDERED: *HR* Labetalol 20 MG/4 ML SYRINGE IVP PRN (08:32)
[2022-03-11] MEDS: Insulin LISPRO 300 UNITS/3 ML VIAL SUBQ SCH ×4 (08:40→20:45)
[2022-03-11] MEDS: Simethicone 80 MG TAB.CHEW PO PRN ×3 (09:27→22:06)
[2022-03-11] MEDS: Sennosides/Docusate Sodium TABLET PO PRN (09:30)
[2022-03-11] MEDS ORDERED: carvediloL 6.25 MG TABLET PO ONE (09:37)
[2022-03-11] MEDS: Budesonide/Formoterol 160/4.5 1 PUFF INH IH SCH ×2 (10:20→22:43)
[2022-03-11] MEDS: Heparin 25,000UNIT/250ML 1/2NS 25,000 UNIT/250 ML IV.SOLN IVC SCH (12:40)
[2022-03-11] MEDS: *HR* Rivaroxaban 10 MG TABLET PO SCH (17:31)
[2022-03-12] MEDS: Levalbuterol Neb 1.25 MG/3 ML IH SCH ×4 (04:22→22:53)
[2022-03-12] MEDS: Ipratropium Neb 0.5 MG NEBULIZER IH SCH ×4 (04:22→22:53)
[2022-03-12 05:18] LABS: Eosinophils % 0.1 %; Hematocrit 29.2 % (35.3-44.9); Hemoglobin 8.5 g/dL (11.5-15.4); Immature Granulocytes % 0.5 % (0-4); Lymphocytes # 0.7 K/mcL (0.6-4.6); Mean Corpuscular HGB Conc 29.1 g/dL (31.6-35.5); Mean Corpuscular Hemoglobin 23.4 pg (28.0-33.3); Mean Corpuscular Volume 80.4 fL (83.0-100.0); Mean Platelet Volume 10.1 fL (9.4-12.4); Monocytes # 0.7 K/mcL (0.0-1.3); Neutrophils # 8.9 K/mcL (1.6-8.9); Platelet Count 222 K/mcL (140-400); Red Blood Count 3.63 M/mcL (3.82-4.97); Red Cell Distribution Width 14.6 % (11.5-14.5); Segmented Neutrophils % 85.4 %; White Blood Count 10.5 K/mcL (4.3-11.1)
[2022-03-12] MEDS: Levothyroxine 25 MCG TABLET PO SCH (05:33)
[2022-03-12 05:39] LABS: Calcium 8.8 mg/dL (8.6-10.3); Potassium 3.6 mEq/L (3.5-5.1)
[2022-03-12 07:19] LABS: Fluid Source for Albumin PLEURAL FL
[2022-03-12] MEDS: DilTIAZem CD (24hr) 180 MG CAP.ER.24H PO SCH (08:46)
[2022-03-12] MEDS: Aspirin 81 MG TAB.CHEW PO SCH (08:46)
[2022-03-12] MEDS: predniSONE 20 MG TABLET PO SCH (08:47)
[2022-03-12] MEDS: carvediloL 6.25 MG TABLET PO SCH ×2 (08:47→17:39)
[2022-03-12] MEDS: Loratadine 10 MG TABLET PO SCH (08:47)
[2022-03-12] MEDS: Piperacillin/Tazobactam 3.375 GM in 0.9 % Sodium Chloride Mini Bag 100 ML IVPB SCH ×2 (08:47→15:23)
[2022-03-12] MEDS: Nystatin POWDER 30 GM BOTTLE TP SCH ×3 (08:48→20:32)
[2022-03-12] MEDS: Insulin LISPRO 300 UNITS/3 ML VIAL SUBQ SCH ×4 (08:49→20:31)
[2022-03-12] MEDS: Budesonide/Formoterol 160/4.5 1 PUFF INH IH SCH ×2 (09:41→22:53)
[2022-03-12] MEDS: Simethicone 80 MG TAB.CHEW PO PRN (12:21)
[2022-03-12] MEDS: Sennosides/Docusate Sodium TABLET PO PRN (13:42)
[2022-03-12] MEDS: *HR* Rivaroxaban 10 MG TABLET PO SCH (17:40)
[2022-03-12] MEDS: hydrOXYzine pamoate 25 MG CAPSULE PO PRN (20:32)
[2022-03-13] MEDS: Piperacillin/Tazobactam 3.375 GM in 0.9 % Sodium Chloride Mini Bag 100 ML IVPB SCH ×3 (00:18→18:38)
[2022-03-13] MEDS: Simethicone 40 MG/0.6 ML MLS PO PRN ×2 (04:03→12:14)
[2022-03-13] MEDS: Levalbuterol Neb 1.25 MG/3 ML IH SCH ×4 (04:11→22:00)
[2022-03-13] MEDS: Ipratropium Neb 0.5 MG NEBULIZER IH SCH ×4 (04:11→22:00)
[2022-03-13] MEDS: Levothyroxine 25 MCG TABLET PO SCH (05:50)
[2022-03-13 06:42] LABS: Basophils % 0.1 %; Eosinophils % 0.1 %; Hematocrit 30.1 % (35.3-44.9); Hemoglobin 8.9 g/dL (11.5-15.4); Immature Granulocytes % 0.5 % (0-4); Lymphocytes # 1.2 K/mcL (0.6-4.6); Lymphocytes % 10.5 %; Mean Corpuscular HGB Conc 29.6 g/dL (31.6-35.5); Mean Corpuscular Hemoglobin 23.4 pg (28.0-33.3); Mean Corpuscular Volume 79.2 fL (83.0-100.0); Mean Platelet Volume 9.9 fL (9.4-12.4); Monocytes % 8.8 %; Neutrophils # 9.4 K/mcL (1.6-8.9); Platelet Count 225 K/mcL (140-400); Red Cell Distribution Width 14.6 % (11.5-14.5); White Blood Count 11.7 K/mcL (4.3-11.1)
[2022-03-13 07:04] LABS: Calcium 8.7 mg/dL (8.6-10.3); Potassium 3.4 mEq/L (3.5-5.1)
[2022-03-13] MEDS: DilTIAZem CD (24hr) 180 MG CAP.ER.24H PO SCH ×2 (08:34→19:37)
[2022-03-13] MEDS: Aspirin 81 MG TAB.CHEW PO SCH (08:36)
[2022-03-13] MEDS: predniSONE 20 MG TABLET PO SCH (08:36)
[2022-03-13] MEDS: Insulin LISPRO 300 UNITS/3 ML VIAL SUBQ SCH ×4 (08:36→22:11)
[2022-03-13] MEDS: Loratadine 10 MG TABLET PO SCH (08:36)
[2022-03-13] MEDS: carvediloL 6.25 MG TABLET PO SCH ×2 (08:39→18:38)
[2022-03-13] MEDS: Nystatin POWDER 30 GM BOTTLE TP SCH ×4 (08:43→19:57)
[2022-03-13] MEDS: Budesonide/Formoterol 160/4.5 1 PUFF INH IH SCH ×2 (09:20→22:01)
[2022-03-13] MEDS: Gabapentin 400 MG CAPSULE PO SCH ×2 (14:20→22:10)
[2022-03-13] MEDS: *HR* Rivaroxaban 10 MG TABLET PO SCH (18:37)
[2022-03-13] MEDS: hydrOXYzine pamoate 25 MG CAPSULE PO PRN (18:37)
[2022-03-14] MEDS: Piperacillin/Tazobactam 3.375 GM in 0.9 % Sodium Chloride Mini Bag 100 ML IVPB SCH ×3 (00:39→15:58)
[2022-03-14] MEDS: Simethicone 40 MG/0.6 ML MLS PO PRN ×4 (01:56→22:52)
[2022-03-14] MEDS: Levalbuterol Neb 1.25 MG/3 ML IH SCH ×4 (03:50→22:05)
[2022-03-14] MEDS: Ipratropium Neb 0.5 MG NEBULIZER IH SCH ×4 (03:50→22:05)
[2022-03-14] MEDS: Levothyroxine 25 MCG TABLET PO SCH (06:10)
[2022-03-14 06:57] LABS: Basophils % 0.1 %; Immature Granulocytes % 0.5 % (0-4)
[2022-03-14 06:59] LABS: Eosinophils # 0.1 K/mcL (0.0-0.6); Eosinophils % 0.5 %; Hematocrit 30.4 % (35.3-44.9); Hemoglobin 8.8 g/dL (11.5-15.4); Lymphocytes # 1.3 K/mcL (0.6-4.6); Lymphocytes % 11.7 %; Mean Corpuscular HGB Conc 28.9 g/dL (31.6-35.5); Mean Corpuscular Hemoglobin 23.3 pg (28.0-33.3); Mean Corpuscular Volume 80.6 fL (83.0-100.0); Mean Platelet Volume 10.4 fL (9.4-12.4); Monocytes # 0.9 K/mcL (0.0-1.3); Neutrophils # 8.9 K/mcL (1.6-8.9); Platelet Count 228 K/mcL (140-400); Red Blood Count 3.77 M/mcL (3.82-4.97); Red Cell Distribution Width 14.5 % (11.5-14.5); Segmented Neutrophils % 79.2 %; White Blood Count 11.2 K/mcL (4.3-11.1)
[2022-03-14 07:29] LABS: Calcium 8.5 mg/dL (8.6-10.3); Potassium 3.5 mEq/L (3.5-5.1)
[2022-03-14] MEDS: predniSONE 20 MG TABLET PO SCH (08:32)
[2022-03-14] MEDS: Aspirin 81 MG TAB.CHEW PO SCH (08:32)
[2022-03-14] MEDS: Gabapentin 400 MG CAPSULE PO SCH ×3 (08:33→20:03)
[2022-03-14] MEDS: DilTIAZem CD (24hr) 180 MG CAP.ER.24H PO SCH ×2 (08:33→20:03)
[2022-03-14] MEDS: Loratadine 10 MG TABLET PO SCH (08:33)
[2022-03-14] MEDS: hydrOXYzine pamoate 25 MG CAPSULE PO PRN ×4 (08:33→22:53)
[2022-03-14] MEDS: Sennosides/Docusate Sodium TABLET PO PRN (08:33)
[2022-03-14] MEDS: carvediloL 6.25 MG TABLET PO SCH ×2 (08:33→16:05)
[2022-03-14] MEDS: Nystatin POWDER 30 GM BOTTLE TP SCH ×3 (08:37→20:04)
[2022-03-14] MEDS: Insulin LISPRO 300 UNITS/3 ML VIAL SUBQ SCH ×4 (08:44→21:07)
[2022-03-14 08:45] LABS: Hypochromasia Present (Not Present); Platelet Estimate Normal (Normal)
[2022-03-14] MEDS: Budesonide/Formoterol 160/4.5 1 PUFF INH IH SCH ×2 (10:23→22:03)
[2022-03-14] MEDS: Furosemide 40 MG TABLET PO SCH (16:05)
[2022-03-14] MEDS: *HR* Rivaroxaban 10 MG TABLET PO SCH (16:05)
[2022-03-14] MEDS ORDERED: Insulin LISPRO 300 UNITS/3 ML VIAL SUBQ ONE (16:10)
[2022-03-14] MEDS ORDERED: Insulin DETEMIR 100 UNIT/ML X5UNITS SUBQ SCH (21:00)
[2022-03-15] MEDS: Piperacillin/Tazobactam 3.375 GM in 0.9 % Sodium Chloride Mini Bag 100 ML IVPB SCH ×4 (00:55→23:20)
[2022-03-15] MEDS: Ipratropium Neb 0.5 MG NEBULIZER IH SCH ×4 (04:44→22:51)
[2022-03-15] MEDS: Levalbuterol Neb 1.25 MG/3 ML IH SCH ×4 (04:44→22:51)
[2022-03-15] MEDS: Levothyroxine 25 MCG TABLET PO SCH (05:10)
[2022-03-15] MEDS ORDERED: Insulin LISPRO 300 UNITS/3 ML VIAL SUBQ ONE ×2 (08:00→19:55)
[2022-03-15] MEDS: carvediloL 6.25 MG TABLET PO SCH ×2 (08:02→16:24)
[2022-03-15] MEDS: predniSONE 20 MG TABLET PO SCH (08:05)
[2022-03-15] MEDS: Loratadine 10 MG TABLET PO SCH (08:07)
[2022-03-15] MEDS: Furosemide 40 MG TABLET PO SCH ×2 (08:07→16:24)
[2022-03-15] MEDS: DilTIAZem CD (24hr) 180 MG CAP.ER.24H PO SCH ×2 (08:07→20:13)
[2022-03-15] MEDS: Gabapentin 400 MG CAPSULE PO SCH ×3 (08:07→20:06)
[2022-03-15] MEDS: Aspirin 81 MG TAB.CHEW PO SCH (08:08)
[2022-03-15] MEDS: Nystatin POWDER 30 GM BOTTLE TP SCH ×3 (08:13→20:46)
[2022-03-15] MEDS ORDERED: 0.9 % Sodium Chloride 500 ML IVC ONE (08:14)
[2022-03-15] MEDS: Insulin LISPRO 300 UNITS/3 ML VIAL SUBQ SCH ×4 (08:15→20:20)
[2022-03-15] MEDS: Insulin DETEMIR 100 UNIT/ML X5UNITS SUBQ SCH ×2 (09:41→20:14)
[2022-03-15] MEDS: Budesonide/Formoterol 160/4.5 1 PUFF INH IH SCH ×2 (09:45→22:51)
[2022-03-15] MEDS: *HR* Rivaroxaban 10 MG TABLET PO SCH (16:24)
[2022-03-15] MEDS ORDERED: Gabapentin 400 MG CAPSULE ONE ×2 (19:53→20:06)
[2022-03-15] MEDS ORDERED: DilTIAZem CD (24hr) 180 MG CAP.ER.24H ONE (19:53)
[2022-03-15] MEDS: Simethicone 40 MG/0.6 ML MLS PO PRN (20:08)
[2022-03-15] MEDS ORDERED: hydrOXYzine pamoate 25 MG CAPSULE PO ONE (20:27)
[2022-03-15] MEDS: hydrOXYzine pamoate 25 MG CAPSULE PO PRN (20:28)
[2022-03-16] MEDS: Ipratropium Neb 0.5 MG NEBULIZER IH SCH ×3 (04:30→15:49)
[2022-03-16] MEDS: Levalbuterol Neb 1.25 MG/3 ML IH SCH ×3 (04:30→15:49)
[2022-03-16] MEDS: Levothyroxine 25 MCG TABLET PO SCH (05:32)
[2022-03-16 08:14] VITALS: BP 134/98; PULSE 82; TEMP 96.4
[2022-03-16] MEDS: predniSONE 20 MG TABLET PO SCH (10:03)
[2022-03-16] MEDS: Aspirin 81 MG TAB.CHEW PO SCH (10:04)
[2022-03-16] MEDS: Gabapentin 400 MG CAPSULE PO SCH (10:04)
[2022-03-16] MEDS: Loratadine 10 MG TABLET PO SCH (10:04)
[2022-03-16] MEDS: DilTIAZem CD (24hr) 180 MG CAP.ER.24H PO SCH (10:04)
[2022-03-16] MEDS: Nystatin POWDER 30 GM BOTTLE TP SCH ×2 (10:11→12:56)
[2022-03-16] MEDS: Insulin LISPRO 300 UNITS/3 ML VIAL SUBQ SCH ×2 (10:11→12:57)
[2022-03-16] MEDS: Furosemide 40 MG TABLET PO SCH (10:20)
[2022-03-16] MEDS: carvediloL 6.25 MG TABLET PO SCH (10:20)
[2022-03-16] MEDS: Piperacillin/Tazobactam 3.375 GM in 0.9 % Sodium Chloride Mini Bag 100 ML IVPB SCH (10:25)
[2022-03-16] MEDS: Insulin DETEMIR 100 UNIT/ML X5UNITS SUBQ SCH (10:27)
[2022-03-16] MEDS: Budesonide/Formoterol 160/4.5 1 PUFF INH IH SCH (10:39)
[2022-03-16 10:44] VITALS: O2SAT 99
[2022-03-16 13:49] LABS: Adenovirus Not Detected (Not Detect); Bordetella Pertussis Not Detected (Not Detect); Chlamydophila pneumoniae Not Detected (Not Detect); Coronavirus 229E Not Detected (Not Detect); Coronavirus HKU1 Not Detected (Not Detect); Coronavirus NL63 Not Detected (Not Detect); Coronavirus OC43 Not Detected (Not Detect); Human Metapneumovirus Not Detected (Not Detect); Human Rhinovirus/Enterovirus Not Detected (Not Detect); Influenza A Subtype 2009 H1 Not Detected (Not Detect); Influenza B Not Detected (Not Detect); Mycoplasma pneumoniae Not Detected (Not Detect); Parainfluenza Virus 1 Not Detected (Not Detect); Parainfluenza Virus 2 Not Detected (Not Detect); Parainfluenza Virus 3 Not Detected (Not Detect); Parainfluenza Virus 4 Not Detected (Not Detect); Respiratory Syncytial Virus Not Detected (Not Detect); SARS-CoV-2 Not Detected (Not Detect)
== END 2022-03-16 16:00 | disposition other institution (70) | DRG 280 ==
LOC: 3NENU → SUATTDRO 17:08 → 3NENU 03-08 16:17
PROVIDERS: ADMIT Internal Medicine; ATTEND Hospitalist